=== PATIENT | female | born 1990 | race Caucasian/White ===

== ENCOUNTER 2017-07-19 08:10 | Emergency (ER) | payer SELFPAY ==
--- NOTE | 2017-07-19 08:56 | RAD REPORT ---
EXAM DESCRIPTION: RAD - Forearm Right - 07/19/2017 8:41 am CLINICAL HISTORY: Blunt force trauma to the arm, persistent arm pain COMPARISON: None. FINDINGS: No fracture is identified. There is no dislocation or periosteal reaction noted. No foreign body or other soft tissue abnormality. IMPRESSION: Negative right forearm examination.
--- NOTE | 2017-07-19 08:56 | RAD REPORT ---
EXAM DESCRIPTION: RAD - Hand Right 3 View - 07/19/2017 8:41 am CLINICAL HISTORY: Hand pain, blunt force trauma to the hand COMPARISON: None. FINDINGS: No fracture confirmed on this study. On the oblique view, there is a faint lucent line in the fifth metacarpal head. This would be an unusual location for a fracture. This is not likely a meryl e finding. No joint abnormality. There is no dislocation or periosteal reaction noted. No foreign rey dy or other soft tissue abnormality. IMPRESSION: No fracture or other acute finding confirmed on this study. Repeat imaging in 7 days would be recommended if the patient has continued symptoms concerning for fr acture.
--- NOTE | 2017-07-19 08:57 | RAD REPORT ---
EXAM DESCRIPTION: RAD - Femur Right - 07/19/2017 8:41 am CLINICAL HISTORY: Right leg trauma COMPARISON: None. FINDINGS: No fracture, dislocation or periosteal reaction noted. No acute or suspicious bony finding . No air or foreign body in the soft tissues. IMPRESSION: Negative right femur examination.
--- NOTE | 2017-07-19 09:12 | EDPHYS ---
Physician Documentation [facility] Name: Heydi Robins Age: 26 yrs Sex: Female : 1990 Arrival Date: 07/19/2017 Time: 08:11 Bed 15 Private MD: ED Physician Paul Hansen HPI: 07/19 09:05 This 26 yrs old Female presents to ER via Ambulatory with complaints of Hand gs Injury. 09:05 The patient or guardian reports injury. The complaints affect the right hand diffusely. gs Context: The problem was sustained at a parking lot, resulted from using own fist to strike, a window. Onset: The symptoms/episode began/occurred acutely, this morning. Modifying factors: the symptoms are aggravated by movement. Associated signs and symptoms: Pertinent positives: r forearm pain, r thigh pain. Severity of symptoms: At their worst the symptoms were moderate, in the emergency department the symptoms are unchanged. The patient has not experienced similar symptoms in the past. 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 - Social history:: Smoking status: Patient uses tobacco products, smokes one pack cigarettes per day. ROS: 09:05 All other systems are negative. gs Exam: 09:05 Head/Face: Normocephalic, atraumatic. Eyes: Pupils equal round and reactive to light, gs extra-ocular motions intact. Lids and lashes normal. Conjunctiva and sclera are non-icteric and not injected. Cornea within normal limits. Periorbital areas with no swelling, redness, or edema. ENT: Nares patent. No nasal discharge, no septal abnormalities noted. Tympanic membranes are normal and external auditory canals are clear. Oropharynx with no redness, swelling, or masses, exudates, or evidence of obstruction, uvula midline. Mucous membranes moist. Neck: Trachea midline, no thyromegaly or masses palpated, and no cervical lymphadenopathy. Supple, full range of motion without nuchal rigidity, or vertebral point tenderness. No Meningismus. Chest/axilla: Normal chest wall appearance and motion. Nontender with no deformity. No lesions are appreciated. Cardiovascular: Regular rate and rhythm with a normal S1 and S2. No gallops, murmurs, or rubs. Normal PMI, no JVD. No pulse deficits. Respiratory: Lungs have equal breath sounds bilaterally, clear to auscultation and percussion. No rales, rhonchi or wheezes noted. No increased work of breathing, no retractions or nasal flaring. Abdomen/GI: Soft, non-tender, with normal bowel sounds. No distension or tympany. No guarding or rebound. No evidence of tenderness throughout. Back: No spinal tenderness. No costovertebral tenderness. Full range of motion. 09:05 Constitutional: The patient appears alert, awake. 09:05 Musculoskeletal/extremity: ROM: limited passive range of motion, in the right hand, limited active range of motion due to pain, limited passive range of motion due to pain, Circulation is intact in all extremities. Sensation intact. 09:05 Skin: injury, abrasion(s), small abrasion noted, of the dorsum of right hand, contusion(s), of the right quadriceps. 09:05 Neuro: Exam negative for acute changes, motor deficits, sensory deficits. Vital Signs: 08:20 BP 131 / 85; Pulse 115; Resp 18; Temp 97.8; Pulse Ox 100% on R/A; Weight 68.95 kg; ph Height 5 ft. 1 in. (154.94 cm); Pain 5/10; 09:10 BP 128 / 81; Pulse 98; Resp 17; Pulse Ox 100% on R/A; rb1 08:20 Body Mass Index 28.72 (68.95 kg, 154.94 cm) ph MDM: 08:21 Patient medically screened. gs 09:05 Differential diagnosis: closed fracture, contusion, abrasion. Data reviewed: vital gs signs, nurses notes, radiologic studies. Response to treatment: the patient's symptoms have markedly improved after treatment, and as a result, I will discharge patient. 07/19 08:43 Order name: Urine Dipstick--Ancillary (enter results) bd 07/19 08:43 Order name: Urine --Ancillary (enter results) bd 07/19 08:21 Order name: Femur Right XRAY 07/19 08:21 Order name: Hand Right 3 View XRAY 07/19 08:21 Order name: Forearm Right XRAY 07/19 08:56 Order name: RAD EDMS 07/19 08:57 Order name: RAD EDMS 07/19 08:57 Order name: RAD EDMS 07/19 09:40 Order name: Wrist Splint; Complete Time: 09:40 rb1 Administered Medications: No medications were administered Disposition: 07/19/17 09:11 Discharged to Home. Impression: Contusion of right hand, Contusion of right thigh. - Condition is Stable. - Discharge Instructions: Contusion, Hand Contusion. - Medication Reconciliation Form, Thank You Letter, Antibiotic Education, Prescription Opioid Use form. - Follow up: Private Physician; When: 2 - 3 days; Reason: Re-evaluation by your physician. Signatures: Dispatcher [employer] Alejandra Underwood RN RN ph Barber, Rebecca, RN RN rb1 Starr, Gregory, MD MD
--- NOTE | 2017-07-19 09:12 | ER ---
Nurse's Notes [facility] Name: Heydi Robins Age: 26 yrs Sex: Female : 1990 Arrival Date: 07/19/2017 Time: 08:11 Bed 15 Private MD: Diagnosis: Contusion of right hand;Contusion of right thigh Presentation: 07/19 08:19 Presenting complaint: Patient states: " I punched a car window last night and I think I ph may have broke something." Redness and swelling noted to R hand. Transition of care: patient was not received from another setting of care. Onset of symptoms was July 19, 2017. Care prior to arrival: None. 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 - Social history:: Smoking status: Patient uses tobacco products, smokes one pack cigarettes per day. Screenin:15 Nutritional screening: No deficits noted. Tuberculosis screening: No symptoms or risk rb1 factors identified. Fall Risk None identified. 08:15 Abuse screen: Denies threats or abuse. rb1 Assessment: 08:15 General: Appears uncomfortable, Behavior is calm, cooperative. General: Appears rb1 unkempt. Neuro: Level of Consciousness is awake, alert, obeys commands, Oriented to person, place, time, situation. Cardiovascular: Capillary refill < 3 seconds is brisk in bilateral fingers. Respiratory: Airway is patent Respiratory effort is even, unlabored, Respiratory pattern is regular, symmetrical. Derm: Skin is pink, warm \\T\\ dry. Injury Description: Pt. stated, "I punched a car window.". 08:15 Pain: Complains of pain in right hand Pain currently is 5 out of 10 on a pain scale. rb1 GI: No signs and/or symptoms were reported involving the gastrointestinal system. : No signs and/or symptoms were reported regarding the genitourinary system. Derm: Bruising that is dark purple, on right hand and right thigh Pt. denies that the injuries were caused by someone else. Pt. stated, "I punched the car window with my hand and broke my phone, but I don't know how I got the bruise on my leg.". Musculoskeletal: Range of motion: limited in right hand. 08:28 Reassessment: pt. went to x-ray. rb1 09:10 Reassessment: Patient appears in no apparent distress at this time. Patient and/or rb1 family updated on plan of care and expected duration. Pain level reassessed. Patient is alert, oriented x 3, equal unlabored respirations, skin warm/dry/pink. Vital Signs: 08:20 BP 131 / 85; Pulse 115; Resp 18; Temp 97.8; Pulse Ox 100% on R/A; Weight 68.95 kg; ph Height 5 ft. 1 in. (154.94 cm); Pain 5/10; 09:10 BP 128 / 81; Pulse 98; Resp 17; Pulse Ox 100% on R/A; rb1 08:20 Body Mass Index 28.72 (68.95 kg, 154.94 cm) ph ED Course: 08:11 Patient arrived in ED. as 08:14 Paul Hansen MD is Attending Physician. gs 08:15 Patient has correct armband on for positive identification. Bed in low position. Call rb1 light in reach. Side rails up X 1. Pulse ox on. NIBP on. 08:20 Triage completed. ph 08:21 Arm band placed on Patient placed in an exam room. ph 08:28 Stephanie De Leon, RN is Primary Nurse. rb1 08:41 Patient moved to radiology via wheelchair. kp1 08:41 X-ray completed. Patient tolerated procedure well. kp1 08:46 Urine --Ancillary (enter results) Sent. rb1 08:46 Urine Dipstick--Ancillary (enter results) Sent. rb1 09:38 No provider procedures requiring assistance completed. Patient did not have IV access rb1 during this emergency room visit. 09:39 Velcro wrist splint applied to right wrist. bm6 Administered Medications: No medications were administered Outcome: 09:11 Discharge ordered by . gs 09:38 Discharged to home ambulatory. rb1 09:38 Condition: stable 09:38 Discharge instructions given to patient, Instructed on discharge instructions, follow up and referral plans. Demonstrated understanding of instructions, follow-up care, Prescriptions given X none 09:40 Patient left the ED. rb1 Signatures: Brandy Verdugo Patricia RN RN Stephanie De Leon RN RN rb1 Lauri Arana bm6 Corrie Mcknight kp1 Paul Hansen MD MD
[2017-07-19 11:08] LABS: Urine Blood 2+ (NEG); Urine Glucose NEGATIVE (NEG); Urine Protein 1+ (NEG); Urine Specific Gravity >1.030 (1.005-1.030); Urine pH 5.5 (5.0-7.0)
== END 2017-07-19 09:40 | disposition home or self-care (01) ==
LOC: ER 08:10
DX: S60.221A Contusion of right hand, initial encounter (principal); S70.11XA Contusion of right thigh, initial encounter; W22.8XXA Striking against or struck by other objects, initial encounter; Y93.89 Activity, other specified; Y92.481 Parking lot as the place of occurrence of the external cause; Z88.2 Allergy status to sulfonamides; E03.9 Hypothyroidism, unspecified; G40.909 Epilepsy, unspecified, not intractable, without status epilepticus; F17.210 Nicotine dependence, cigarettes, uncomplicated
CPT/HCPCS: 81003; 81025; 99284

== ENCOUNTER 2018-01-13 19:41 | Emergency (ER) | payer SELFPAY ==
[2018-01-13] MEDS ORDERED: KETOROLAC 30 MG/ML INJ ONE (20:45)
[2018-01-13 20:46] LABS: Urine Blood TRACE (NEG); Urine Glucose NEGATIVE (NEG); Urine Protein NEGATIVE (NEG); Urine Specific Gravity 1.025 (1.005-1.030); Urine pH 5.5 (5.0-7.0)
--- NOTE | 2018-01-13 20:50 | ER ---
Nurse's Notes [facility] Name: Heydi Robins Age: 27 yrs Sex: Female : 1990 Arrival Date: 01/13/2018 Time: 19:42 Bed 25 Private MD: Ellie Evans C Diagnosis: Low back pain Presentation: 01/13 20:01 Presenting complaint: Patient states: she started having low back pain yesterday but bb pain has gotten much worse today, pt denies radiation of pain or dysuria. Transition of care: patient was not received from another setting of care. Onset of symptoms was January 13, 2018. Risk Assessment: Do you want to hurt yourself or someone else? Patient reports no desire to harm self or others. Initial Sepsis Screen: Does the patient meet any 2 criteria? No. Patient's initial sepsis screen is negative. Does the patient have a suspected source of infection? No. Patient's initial sepsis screen is negative. Care prior to arrival: None. 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 - Social history:: Smoking status: Patient uses tobacco products, smokes one-half pack cigarettes per day, Patient/guardian denies using alcohol, street drugs. - Ebola Screening: : No symptoms or risks identified at this time. Screenin:14 Abuse screen: Denies threats or abuse. Nutritional screening: No deficits noted. tl3 Tuberculosis screening: No symptoms or risk factors identified. Fall Risk None identified. Assessment: 20:14 General: Appears uncomfortable, well groomed, well developed, well nourished, Behavior tl3 is calm, cooperative, appropriate for age. Pain: Complains of pain in back Pain currently is 9 out of 10 on a pain scale. Neuro: Level of Consciousness is awake, alert, obeys commands. Cardiovascular: Patient's skin is warm and dry. Respiratory: Airway is patent Respiratory effort is even, unlabored, Respiratory pattern is regular, symmetrical. GI: No signs and/or symptoms were reported involving the gastrointestinal system. : No signs and/or symptoms were reported regarding the genitourinary system. EENT: No signs and/or symptoms were reported regarding the EENT system. Derm: No signs and/or symptoms reported regarding the dermatologic system. 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 21:06 Reassessment: Patient appears in no apparent distress at this time. No changes from tl3 previously documented assessment. Patient and/or family updated on plan of care and expected duration. Pain level reassessed. Patient is alert, oriented x 3, equal unlabored respirations, skin warm/dry/pink. Vital Signs: 20:12 BP 110 / 72; Pulse 85; Resp 16 S; Temp 98.9(O); Pulse Ox 99% on R/A; Weight 63.5 kg bb (R); Height 5 ft. 5 in. (165.10 cm) (R); Pain 7/10; 21:06 BP 104 / 75; Pulse 82; Resp 18; Pulse Ox 100% on R/A; tl3 20:12 Body Mass Index 23.30 (63.50 kg, 165.10 cm) bb ED Course: 19:42 Patient arrived in ED. am2 19:42 Ellie Evans FNP is Private Physician. am2 19:51 Kailyn Quach FNP-C is [facility]. snw 19:51 Khang Brooks MD is Attending Physician. snw 19:59 Yue Cuevas RN is Primary Nurse. tl3 20:07 Triage completed. bb 20:12 Arm band placed on Patient placed in an exam room, on a stretcher, on pulse oximetry. bb 20:14 Patient has correct armband on for positive identification. Bed in low position. Call tl3 light in reach. Side rails up X 1. Pulse ox on. NIBP on. 20:14 No provider procedures requiring assistance completed. tl3 21:06 Patient did not have IV access during this emergency room visit. tl3 Administered Medications: 20:45 Drug: TORadol 60 mg Route: IM; Site: left vastus lateralis; tl3 21:07 Follow up: Response: No adverse reaction; Pain is decreased tl3 Outcome: 20:50 Discharge ordered by MD. duarte 21:06 Discharged to home ambulatory. tl3 21:06 Condition: stable 21:06 Discharge instructions given to patient, Instructed on discharge instructions, follow up and referral plans. medication usage, Demonstrated understanding of instructions, follow-up care, medications, Prescriptions given X 2. 21:09 Patient left the ED. tl3 Signatures: Kailyn Quach, EVP MANAGING DIRECTOR-C EVP MANAGING DIRECTOR-Csnw Norma Caballero, RN RN bb Susy Renner Tammy, RN RN tl3
--- NOTE | 2018-01-13 20:50 | EDPHYS ---
Physician Documentation [facility] Name: Heydi Robins Age: 27 yrs Sex: Female : 1990 Arrival Date: 01/13/2018 Time: 19:42 Bed 25 Private MD: Ellie Evans C ED Physician Khang Brooks HPI: 01/13 20:35 This 27 yrs old Female presents to ER via Ambulatory with complaints of Low snw Back Pain. 20:35 The patient presents with pain that is acute. The symptoms are located in the low back. snw Location: lumbar area and right low back. The problem was sustained from unknown cause. Onset: The symptoms/episode began/occurred suddenly, yesterday. Modifying factors: The patient symptoms are alleviated by nothing, the patient symptoms are aggravated by movement. Severity of symptoms: At their worst the symptoms were moderate, severe. The patient has not experienced similar symptoms in the past. The patient has not recently seen a physician. pt states she slipped the other day but caught herself and did not fall. Pt takes phenteramine, keppra, and topamax. Allergic to sulfa. 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 - Social history:: Smoking status: Patient uses tobacco products, smokes one-half pack cigarettes per day, Patient/guardian denies using alcohol, street drugs. - Ebola Screening: : No symptoms or risks identified at this time. ROS: 20:34 Constitutional: Negative for fever, chills, and weight loss, Eyes: Negative for injury, snw pain, redness, and discharge, ENT: Negative for injury, pain, and discharge, Neck: Negative for injury, pain, and swelling, Cardiovascular: Negative for chest pain, palpitations, and edema, Respiratory: Negative for shortness of breath, cough, wheezing, and pleuritic chest pain, Abdomen/GI: Negative for abdominal pain, nausea, vomiting, diarrhea, and constipation, : Negative for injury, bleeding, discharge, and swelling, MS/Extremity: Negative for injury and deformity, Skin: Negative for injury, rash, and discoloration, Neuro: Negative for headache, weakness, numbness, tingling, and seizure. 20:34 Back: Positive for pain at rest, pain with movement, of the lumbar area and right low back. Exam: 20:34 Constitutional: This is a well developed, well nourished patient who is awake, alert, snw and in no acute distress. Head/Face: Normocephalic, atraumatic. Eyes: Pupils equal round and reactive to light, extra-ocular motions intact. Lids and lashes normal. Conjunctiva and sclera are non-icteric and not injected. Cornea within normal limits. Periorbital areas with no swelling, redness, or edema. ENT: Nares patent. No nasal discharge, no septal abnormalities noted. Tympanic membranes are normal and external auditory canals are clear. Oropharynx with no redness, swelling, or masses, exudates, or evidence of obstruction, uvula midline. Mucous membranes moist. Neck: Trachea midline, no thyromegaly or masses palpated, and no cervical lymphadenopathy. Supple, full range of motion without nuchal rigidity, or vertebral point tenderness. No Meningismus. Chest/axilla: Normal chest wall appearance and motion. Nontender with no deformity. No lesions are appreciated. Cardiovascular: Regular rate and rhythm with a normal S1 and S2. No gallops, murmurs, or rubs. Normal PMI, no JVD. No pulse deficits. Respiratory: Lungs have equal breath sounds bilaterally, clear to auscultation and percussion. No rales, rhonchi or wheezes noted. No increased work of breathing, no retractions or nasal flaring. Abdomen/GI: Soft, non-tender, with normal bowel sounds. No distension or tympany. No guarding or rebound. No evidence of tenderness throughout. Skin: Warm, dry with normal turgor. Normal color with no rashes, no lesions, and no evidence of cellulitis. MS/ Extremity: Pulses equal, no cyanosis. Neurovascular intact. Full, normal range of motion. Neuro: Awake and alert, GCS 15, oriented to person, place, time, and situation. Cranial nerves II-XII grossly intact. Motor strength 5/5 in all extremities. Sensory grossly intact. Cerebellar exam normal. Normal gait. Psych: Awake, alert, with orientation to person, place and time. Behavior, mood, and affect are within normal limits. 20:34 Back: pain, that is mild, of the lumbar area and right low back, ROM is painful, normal spinal alignment noted, CVA tenderness, is absent, muscle spasm, is not present. Vital Signs: 20:12 BP 110 / 72; Pulse 85; Resp 16 S; Temp 98.9(O); Pulse Ox 99% on R/A; Weight 63.5 kg bb (R); Height 5 ft. 5 in. (165.10 cm) (R); Pain 7/10; 21:06 BP 104 / 75; Pulse 82; Resp 18; Pulse Ox 100% on R/A; tl3 20:12 Body Mass Index 23.30 (63.50 kg, 165.10 cm) bb MDM: 20:24 Patient medically screened. snw 20:51 Data reviewed: vital signs, nurses notes. Data interpreted: Pulse oximetry: on room air snw is 99 %. Interpretation: normal. Counseling: I had a detailed discussion with the patient and/or guardian regarding: the historical points, exam findings, and any diagnostic results supporting the discharge/admit diagnosis, lab results, the need for outpatient follow up, to return to the emergency department if symptoms worsen or persist or if there are any questions or concerns that arise at home. Special discussion: Based on the history and exam findings, there is no indication for further emergent testing or inpatient evaluation. I discussed with the patient/guardian the need to see the primary care provider for further evaluation of the symptoms. 01/13 19:51 Order name: Urine Test (obtain specimen); Complete Time: 20:14 snw 01/13 20:15 Order name: Urine Dipstick--Ancillary (enter results); Complete Time: 20:49 ms 01/13 20:15 Order name: Urine --Ancillary (enter results); Complete Time: 20:49 ms 01/13 19:51 Order name: Urine Dipstick-Ancillary (obtain specimen); Complete Time: 20:14 snw Administered Medications: 20:45 Drug: TORadol 60 mg Route: IM; Site: left vastus lateralis; tl3 21:07 Follow up: Response: No adverse reaction; Pain is decreased tl3 Disposition: 01/14 07:08 Co-signature as Attending Physician, Khang Brooks MD I agree with the assessment and fredi plan of care. Disposition: 01/13/18 20:50 Discharged to Home. Impression: Low back pain. - Condition is Stable. - Discharge Instructions: Back Pain, Adult, Musculoskeletal Pain, Back Injury Prevention, [id number], Back Exercises, [id number], Cryotherapy, Heat Therapy. - Prescriptions for Diclofenac Sodium 75 mg Oral Tablet Sustained Release - take 1 tablet by ORAL route 2 times per day; 30 tablet. orphenadrine citrate 100 mg Oral Tablet Sustained Release - take 1 tablet by ORAL route 2 times per day As needed; 20 tablet. - Work release form, Medication Reconciliation Form, Thank You Letter, Antibiotic Education, Prescription Opioid Use form. - Follow up: Private Physician; When: 2 - 3 days; Reason: Recheck today's complaints, Continuance of care, Re-evaluation by your physician. Follow up: Emergency Department; When: As needed; Reason: Worsening of condition. Signatures: Dispatcher [employer] EDOH Khang Brooks MD MD cha Therrien, Shelly, FINANCIAL ADMINISTRATION OFFICER-C FINANCIAL ADMINISTRATION OFFICER-Csnw Norma Caballero, RN RN Yue Leal RN RN tl3 Corrections: (The following items were deleted from the chart) 01/13 21:09 20:50 01/13/2018 20:50 Discharged to Home. Impression: Low back pain. Condition is tl3 Stable. Forms are Medication Reconciliation Form, Thank You Letter, Antibiotic Education, Prescription Opioid Use. Follow up: Private Physician; When: 2 - 3 days; Reason: Recheck today's complaints, Continuance of care, Re-evaluation by your physician. Follow up: Emergency Department; When: As needed; Reason: Worsening of condition. snw
== END 2018-01-13 21:09 | disposition home or self-care (01) ==
LOC: ER 19:41
DX: M54.5 Low back pain (principal); Z88.2 Allergy status to sulfonamides
CPT/HCPCS: 81003; 81025; 96372; 99283

== ENCOUNTER 2018-03-25 19:24 | Emergency (ER) | payer SELFPAY ==
--- NOTE | 2018-03-25 20:18 | ER ---
Nurse's Notes [facility] Name: Heydi Robins Age: 27 yrs Sex: Female : 1990 Arrival Date: 03/25/2018 Time: 19:25 Bed Waiting Private MD: Ellie Evans C Diagnosis: Presentation: 03/25 19:54 Presenting complaint: Patient states: N/V, fever, body aches since this AM. Transition aj of care: patient was not received from another setting of care. Onset of symptoms was March 25, 2018. Risk Assessment: Do you want to hurt yourself or someone else? Patient reports no desire to harm self or others. Initial Sepsis Screen: Does the patient meet any 2 criteria? No. Patient's initial sepsis screen is negative. Does the patient have a suspected source of infection? No. Patient's initial sepsis screen is negative. Care prior to arrival: None. 19:54 Method Of Arrival: Ambulatory aj 19:54 Acuity: JOYCELYN 4 aj Triage Assessment: 19:56 General: Appears in no apparent distress. uncomfortable, ill, Behavior is calm, aj cooperative, appropriate for age. Pain: Complains of pain in body aches. Neuro: Level of Consciousness is awake, alert, obeys commands, Oriented to person, place, time, situation, Appropriate for age. Respiratory: Airway is patent Respiratory effort is even, unlabored, Respiratory pattern is regular, symmetrical. GI: Reports nausea, vomiting. Derm: Skin is intact, is healthy with good turgor, Skin is pink, warm \T\ dry. normal. Historical: - Allergies: 19:56 Sulfa (Sulfonamide Antibiotics); aj - Home Meds: 19:56 Keppra Oral [Active]; levetiracetam oral oral [Active]; aj - PMHx: 19:56 Hypothyroidism; Migraines; Seizures; aj - PSHx: 19:56 Tubal ligation; Appendectomy; aj - Immunization history:: Adult Immunizations up to date. - Social history:: Smoking status: Patient/guardian denies using tobacco. - Ebola Screening: : Patient negative for fever greater than or equal to 101.5 degrees Fahrenheit, and additional compatible Ebola Virus Disease symptoms Patient denies exposure to infectious person Patient denies travel to an Ebola-affected area in the 21 days before illness onset No symptoms or risks identified at this time. Vital Signs: 19:56 BP 110 / 66; Pulse 104; Resp 19; Temp 99.6(O); Pulse Ox 98% on R/A; Weight 63.5 kg; aj Height 5 ft. 1 in. (154.94 cm); 19:56 Body Mass Index 26.45 (63.50 kg, 154.94 cm) aj ED Course: 19:25 Patient arrived in ED. am2 19:28 Ellie Evans FNP is Private Physician. am2 19:55 Triage completed. aj 19:56 Arm band placed on left wrist. Patient placed in waiting room, Patient notified of wait aj time. Labs ordered per protocol. 20:17 Paul Hansen MD is Attending Physician. aj Administered Medications: No medications were administered Outcome: 20:16 Eloped from waiting room, before seeing physician Time discovered patient gone: aj March 25, 2018 at 20:16 20:17 Patient left the ED. aj Signatures: Susy Crespo, RN RN Susy Berg am2
== END 2018-03-25 20:17 | disposition left against medical advice (07) ==
LOC: ER 19:24
DX: Z53.21 Procedure and treatment not carried out due to patient leaving prior to being seen by health care provider (principal)
CPT/HCPCS: 87070; 87081; 87804; 99282

== ENCOUNTER 2018-07-21 13:58 | Emergency (ER) | payer SELFPAY ==
[2018-07-21 15:20] LABS: Absolute Lymphocytes (CBC) 2.4 K/uL (0.7-4.9); Absolute Monocytes 0.8 K/uL (0.1-1.3); Absolute Neutrophil 5.1 K/uL (1.8-8.0); Basophils % 0.3 % (0-1.3); Eosinophils % 0.9 % (0-4.4); Hematocrit 42.8 % (36.0-45.0); Lymphocytes % 28.3 % (15.3-44.8); MPV 8.2 fL (7.6-11.3); Monocytes % 9.2 % (3.3-12.3)
[2018-07-21 15:27] LABS: Protime INR 0.92
[2018-07-21 15:31] LABS: ALT/SGPT 17 U/L (12-78); AST/SGOT 9 U/L (15-37); Albumin 4.6 g/dL (3.4-5.0); Alkaline Phosphatase 52 U/L (45-117); BUN Blood Urea Nitrogen 10 mg/dL (7-18); Bicarbonate 30 mmol/L (21-32); Bilirubin Direct 0.2 mg/dL (0-0.2); Bilirubin Total 0.8 mg/dL (0.2-1.0); Glucose Level 88 mg/dL (74-106); Magnesium 2.1 mg/dL (1.8-2.4); NT PRO-BNP 33 pg/mL (<125); Potassium 3.5 mmol/L (3.5-5.1); Protein, Total 8.2 g/dL (6.4-8.2); Sodium Level 139 mmol/L (136-145); Troponin (Emerg Dept Use Only) < 0.02 ng/mL (0.0-0.045)
--- NOTE | 2018-07-21 15:41 | RAD REPORT ---
EXAM DESCRIPTION: Jori Single View07/21/2018 3:12 pm CLINICAL HISTORY: Chest pain COMPARISON: 2016 FINDINGS: The lungs appear clear of acute infiltrate. The heart is normal size IMPRESSION: No acute abnormalities displayed
[2018-07-21] MEDS ORDERED: NA CHLORIDE 0.9% 1,000 ML ONE (15:53)
--- NOTE | 2018-07-21 16:17 | RAD REPORT ---
EXAM DESCRIPTION: CT - Head Brain Wo Cont - 07/21/2018 4:02 pm CLINICAL HISTORY: Syncope COMPARISON: None. TECHNIQUE: Computed axial tomography of the head was obtained. IV contrast was not requested. All CT scans are performed using dose optimization technique as appropriate and may include automated exposure control or mA/KV adjustment according to patient size. FINDINGS: An intracranial bleed is not seen . The ventricles are normal in caliber. No extra-axial fluid collection is noted. Fluid within the sinuses/ mastoids is not seen. Mild chronic sphenoid sinusitis IMPRESSION: No acute intracranial abnormality is seen. If patient's symptoms persist MRI of the bra in would be recommended.
[2018-07-21 18:10] LABS: Barbiturates NEGATIVE (NEGATIVE); Benzodiazepines NEGATIVE (NEGATIVE); Cocaine NEGATIVE (NEGATIVE); METHAMPHETAM NEGATIVE (NEGATIVE); Methadone NEGATIVE (NEGATIVE); Opiates NEGATIVE (NEGATIVE); Phencyclidine NEGATIVE (NEGATIVE); THC Cannibis NEGATIVE (NEGATIVE)
--- NOTE | 2018-07-21 18:24 | ER ---
Nurse's Notes [facility] Name: Heydi Robins Age: 27 yrs Sex: Female : 1990 Arrival Date: 07/21/2018 Time: 14:01 Bed 15 Private MD: Diagnosis: Syncope and collapse Presentation: 07/21 14:21 Presenting complaint: Patient states: "I don't feel well, earlier my vision got ss blurred, and I felt uncomfortable in my L shoulder, then I stood up and next thing I know I woke up on the ground. I've had seizures before, but this feels different.". Transition of care: patient was not received from another setting of care. Onset of symptoms was July 21, 2018. Risk Assessment: Do you want to hurt yourself or someone else? Patient reports no desire to harm self or others. Initial Sepsis Screen: Does the patient meet any 2 criteria? HR > 90 bpm. Does the patient have a suspected source of infection? No. Patient's initial sepsis screen is negative. Care prior to arrival: None. 14:21 Method Of Arrival: Wheelchair ss 14:21 Acuity: JOYCELYN 2 ss Triage Assessment: 14:30 General: Appears in no apparent distress. comfortable, Behavior is cooperative, bp appropriate for age, anxious. Pain: Denies pain. Historical: - Allergies: 14:24 Sulfa (Sulfonamide Antibiotics); ss - Home Meds: 14:24 Keppra Oral [Active]; ss - PMHx: 14:24 Hypothyroidism; Migraines; Seizures; ss - PSHx: 14:24 Tubal ligation; Appendectomy; ss - Immunization history:: Adult Immunizations up to date. - Social history:: Smoking status: Patient uses tobacco products, "vape. - Ebola Screening: : Patient denies exposure to infectious person Patient denies travel to an Ebola-affected area in the 21 days before illness onset. Screenin:25 Abuse screen: Denies threats or abuse. Denies injuries from another. Nutritional bp screening: No deficits noted. Tuberculosis screening: No symptoms or risk factors identified. Fall Risk None identified. Assessment: 14:26 Reassessment: Pt is tearful and seems anxious during triage. ss 14:30 General: Appears in no apparent distress. comfortable, Behavior is cooperative, bp appropriate for age, anxious. Pain: Denies pain. Neuro: Level of Consciousness is awake, alert, obeys commands, Oriented to person, place, time, situation, Appropriate for age. Cardiovascular: No deficits noted. Respiratory: Airway is patent Respiratory effort is even, unlabored, Respiratory pattern is regular, symmetrical. GI: No signs and/or symptoms were reported involving the gastrointestinal system. : No signs and/or symptoms were reported regarding the genitourinary system. EENT: No deficits noted. Derm: No deficits noted. Musculoskeletal: Circulation, motion, and sensation intact. Range of motion: intact in all extremities. 15:47 Reassessment: PT ANXIOUS AND TEARFUL, LOUD AND ANIMATED ON PHONE WITH FAMILY. IVF bp INFUSING. 17:02 Reassessment: PT REMAINS TEARFUL AND ANXIOUS. VS STABLE ON B/S MONITOR. bp 19:00 Reassessment: Received patient from JESSA Alexander. Patient discharge pending urine micro aj1 results. 20:00 Reassessment: Patient appears in no apparent distress at this time. No changes from aj1 previously documented assessment. Patient and/or family updated on plan of care and expected duration. Pain level reassessed. Patient is alert, oriented x 3, equal unlabored respirations, skin warm/dry/pink. Vital Signs: 14:24 BP 125 / 97; Pulse 125; Resp 18; Temp 98.6(O); Pulse Ox 100% on R/A; Weight 66.68 kg; ss Height 5 ft. 10 in. (177.80 cm); Pain 0/10; 15:27 BP 169 / 96 LA Sitting (auto/reg); Pulse 123; em1 15:31 BP 126 / 91 LA Standing (auto/reg); Pulse 131; em1 17:01 BP 125 / 86; Pulse 113; Resp 19; Pulse Ox 99% ; bp 19:10 BP 119 / 89; Pulse 99; Resp 18; Pulse Ox 100% ; aj1 20:00 BP 124 / 89; Pulse 98; Resp 18; Pulse Ox 100% on R/A; aj1 14:24 Body Mass Index 21.09 (66.68 kg, 177.80 cm) ED Course: 14:01 Patient arrived in ED. as 14:23 Triage completed. 14:24 Arm band placed on right wrist. 14:29 Benjamin Carter, RN is Primary Nurse. bp 14:31 Willian Hartley NP is PHCP. pm1 14:31 Hero Cardoza MD is Attending Physician. pm1 14:35 EKG done, by nuclear technician. reviewed by Willian Hartley NP. sm3 15:05 Initial lab(s) drawn, by me, sent to lab. Inserted saline lock: 20 gauge in right em1 antecubital area, using aseptic technique. Blood collected. 15:11 X-ray completed. Portable x-ray completed in exam room. Patient tolerated procedure 1 well. 15:12 XRAY Chest (1 view) In Process Unspecified. EDMS 15:25 Patient has correct armband on for positive identification. Bed in low position. Call bp light in reach. Side rails up X2. Adult w/ patient. 15:[address] via wheelchair. vm2 16:01 CT completed. Patient tolerated procedure well. Patient moved back from CT. 2 16:02 CT Head Brain wo Cont In Process Unspecified. EDMS 20:29 No provider procedures requiring assistance completed. IV discontinued, intact, aj1 bleeding controlled, No redness/swelling at site. Pressure dressing applied. Administered Medications: 15:45 Drug: NS 0.9% 1000 ml Route: IV; Rate: 1000 ml; Site: right antecubital; bp Outcome: 18:24 Discharge ordered by . pm1 20:29 Discharged to home ambulatory, with family. aj1 20:29 Condition: good 20:29 Discharge instructions given to patient, Instructed on discharge instructions, follow up and referral plans. Demonstrated understanding of instructions, follow-up care. 20:31 Patient left the ED. aj1 Signatures: Dispatcher [employer] EDMS Jayshree Guajardo, RN RN aj1 Ale Robles 1 Brandy Verdugo Eric 1 Ceci Vincent RN RN ss Marinas, Patrick, NP PRESCHOOL TEACHER pm1 Maggie Bowens 2 Benjamin Carter RN RN Yessi Dhillon 3
--- NOTE | 2018-07-21 18:24 | EDPHYS ---
Physician Documentation [facility] Name: Heydi Robins Age: 27 yrs Sex: Female : 1990 Arrival Date: 07/21/2018 Time: 14:01 Bed 15 Private MD: ED Physician Hero Cardoza HPI: 07/21 15:00 This 27 yrs old Female presents to ER via Wheelchair with complaints of pm1 Dizziness, Syncope. 15:00 The patient presents with dizziness. Onset: The symptoms/episode began/occurred just pm1 prior to arrival. Context: occurred at home, occurred while the patient was changing position from sitting in couch to standing. just prior to the episode the patient experienced no apparent symptoms. Modifying factors: The symptoms are alleviated by lying down, the symptoms are aggravated by changing position. Associated signs and symptoms: Pertinent positives: bilateral vision with sensation like floaters, Pertinent negatives: abdominal pain, chest pain, nausea, numbness, shortness of breath, tingling, vomiting. Severity of symptoms: in the emergency department the symptoms have improved Pain is currently a 0 / 10. Patient's baseline: Neuro: alert and fully oriented, Motor: no deficits, Ambulation: walks without assistance, Speech: normal, The patient has a previous history of seizures. The patient has not recently seen a physician. 15:00 Has UTI that she has been taking two days of macrodantin. pm1 Historical: - Allergies: 14:24 Sulfa (Sulfonamide Antibiotics); ss - Home Meds: 14:24 Keppra Oral [Active]; ss - PMHx: 14:24 Hypothyroidism; Migraines; Seizures; ss - PSHx: 14:24 Tubal ligation; Appendectomy; ss - Immunization history:: Adult Immunizations up to date. - Social history:: Smoking status: Patient uses tobacco products, "vape. - Ebola Screening: : Patient denies exposure to infectious person Patient denies travel to an Ebola-affected area in the 21 days before illness onset. ROS: 15:00 Constitutional: Negative for fever, chills, and weight loss, ENT: Negative for injury, pm1 pain, and discharge, Neck: Negative for injury, pain, and swelling, Cardiovascular: Negative for chest pain, palpitations, and edema, Respiratory: Negative for shortness of breath, cough, wheezing, and pleuritic chest pain, Abdomen/GI: Negative for abdominal pain, nausea, vomiting, diarrhea, and constipation, Back: Negative for injury and pain, : Negative for injury, bleeding, discharge, and swelling, MS/Extremity: Negative for injury and deformity, Skin: Negative for injury, rash, and discoloration. 15:00 Eyes: Positive for floaters in bilateral eyes, Negative for pain, redness. 15:00 Neuro: Positive for dizziness, Negative for headache, numbness, tingling, weakness. Exam: 15:00 Constitutional: This is a well developed, well nourished patient who is awake, alert, pm1 and in no acute distress. Head/Face: Normocephalic, atraumatic. Eyes: Pupils equal round and reactive to light, extra-ocular motions intact. Lids and lashes normal. Conjunctiva and sclera are non-icteric and not injected. Cornea within normal limits. Periorbital areas with no swelling, redness, or edema. ENT: Nares patent. No nasal discharge, no septal abnormalities noted. Tympanic membranes are normal and external auditory canals are clear. Oropharynx with no redness, swelling, or masses, exudates, or evidence of obstruction, uvula midline. Mucous membranes moist. Neck: Trachea midline, no thyromegaly or masses palpated, and no cervical lymphadenopathy. Supple, full range of motion without nuchal rigidity, or vertebral point tenderness. No Meningismus. Chest/axilla: Normal chest wall appearance and motion. Nontender with no deformity. No lesions are appreciated. Cardiovascular: Regular rate and rhythm with a normal S1 and S2. No gallops, murmurs, or rubs. Normal PMI, no JVD. No pulse deficits. Respiratory: Lungs have equal breath sounds bilaterally, clear to auscultation and percussion. No rales, rhonchi or wheezes noted. No increased work of breathing, no retractions or nasal flaring. Abdomen/GI: Soft, non-tender, with normal bowel sounds. No distension or tympany. No guarding or rebound. No evidence of tenderness throughout. Back: No spinal tenderness. No costovertebral tenderness. Full range of motion. Skin: Warm, dry with normal turgor. Normal color with no rashes, no lesions, and no evidence of cellulitis. MS/ Extremity: Pulses equal, no cyanosis. Neurovascular intact. Full, normal range of motion. 15:00 Neuro: Orientation: is normal, Cranial nerves: CN II- XII are normal as tested, Cerebellar function: normal finger to nose testing, Motor: is normal, moves all fours, strength is 5/5 in all extremities, Sensation: is normal, no obvious gross deficits. Vital Signs: 14:24 BP 125 / 97; Pulse 125; Resp 18; Temp 98.6(O); Pulse Ox 100% on R/A; Weight 66.68 kg; ss Height 5 ft. 10 in. (177.80 cm); Pain 0/10; 15:27 BP 169 / 96 LA Sitting (auto/reg); Pulse 123; em1 15:31 BP 126 / 91 LA Standing (auto/reg); Pulse 131; em1 17:01 BP 125 / 86; Pulse 113; Resp 19; Pulse Ox 99% ; bp 19:10 BP 119 / 89; Pulse 99; Resp 18; Pulse Ox 100% ; aj1 20:00 BP 124 / 89; Pulse 98; Resp 18; Pulse Ox 100% on R/A; aj1 14:24 Body Mass Index 21.09 (66.68 kg, 177.80 cm) ss MDM: 14:46 Patient medically screened. pm1 18:04 Data reviewed: vital signs. Data interpreted: Pulse oximetry: on room air is 99 %. pm1 Interpretation: normal. 18:20 Differential diagnosis: cardiac arrhythmia, hypovolemia, syncope, vertigo, seizure. pm1 18:23 Counseling: I had a detailed discussion with the patient and/or guardian regarding: the pm1 historical points, exam findings, and any diagnostic results supporting the discharge/admit diagnosis, lab results, radiology results, the need for outpatient follow up, to return to the emergency department if symptoms worsen or persist or if there are any questions or concerns that arise at home. 07/21 14:49 Order name: Basic Metabolic Panel; Complete Time: 15:48 pm1 07/21 14:49 Order name: CBC with Diff; Complete Time: 15:29 pm1 07/21 14:49 Order name: LFT's; Complete Time: 15:48 pm1 07/21 14:49 Order name: Magnesium; Complete Time: 15:48 pm1 07/21 14:49 Order name: NT PRO-BNP; Complete Time: 15:48 pm07/21 14:49 Order name: PT-INR; Complete Time: 15:48 pm07/21 14:49 Order name: Troponin (emerg Dept Use Only); Complete Time: 15:48 pm07/21 14:49 Order name: XRAY Chest (1 view); Complete Time: 15:48 pm07/21 14:49 Order name: UDS; Complete Time: 18:11 pm07/21 15:49 Order name: CT Head Brain wo Cont; Complete Time: 16:20 pm07/21 17:54 Order name: Urine Dipstick--Ancillary (enter results); Complete Time: 08:37 kj07/21 17:55 Order name: Urine --Ancillary (enter results); Complete Time: 08:37 07/21 18:53 Order name: Urine Microscopic Only; Complete Time: 08:37 pm07/21 14:26 Order name: EKG; Complete Time: 14:27 07/21 14:26 Order name: EKG - Nurse/Tech; Complete Time: 15:05 07/21 14:49 Order name: Orthostatic Blood Pressure; Complete Time: 15:31 pm07/21 14:49 Order name: Cardiac monitoring; Complete Time: 15:22 pm07/21 14:49 Order name: IV Saline Lock; Complete Time: 15:04 pm07/21 14:49 Order name: Labs collected and sent; Complete Time: 15:04 pm07/21 14:49 Order name: O2 Per Protocol; Complete Time: 15:22 pm07/21 14:49 Order name: O2 Sat Monitoring; Complete Time: 15:22 pm Administered Medications: 15:45 Drug: NS 0.9% 1000 ml Route: IV; Rate: 1000 ml; Site: right antecubital; bp Disposition: 07/22 07:33 Co-signature as Attending Physician, Hero Cardoza MD I agree with the assessment and wa plan of care. Disposition: 07/21/18 18:24 Discharged to Home. Impression: Syncope and collapse. - Condition is Stable. - Discharge Instructions: Syncope. - Family Work Release, Medication Reconciliation Form, Thank You Letter, Antibiotic Education, Prescription Opioid Use form. - Follow up: Emergency Department; When: As needed; Reason: Worsening of condition. Follow up: Private Physician; When: 2 - 3 days; Reason: Recheck today's complaints, Continuance of care, Re-evaluation by your physician. - Problem is new. - Symptoms have improved. Signatures: Dispatcher [employer] EDJayshree Bates RN RN aj1 Ceci Vincent RN RN ss Willian Hartley, FILLER ROOM ATTENDANT FILLER ROOM ATTENDANT pm1 Hero Cardoza MD MD wa Peltier, Brian, RN RN bp Corrections: (The following items were deleted from the chart) 07/21 20:31 18:24 07/21/2018 18:24 Discharged to Home. Impression: Syncope and collapse. Condition aj1 is Stable. Forms are Medication Reconciliation Form, Thank You Letter, Antibiotic Education, Prescription Opioid Use. Follow up: Emergency Department; When: As needed; Reason: Worsening of condition. Follow up: Private Physician; When: 2 - 3 days; Reason: Recheck today's complaints, Continuance of care, Re-evaluation by your physician. Problem is new. Symptoms have improved. pm1
[2018-07-21 19:36] LABS: Urine Bacteria <20 /HPF (<20); Urine Culture Reflex Order NOT NEEDED; Urine RBC <5 /HPF (NONE SEEN)
--- NOTE | 2018-07-21 20:19 | EKG ---
Test Date: 2018-07-21 Test Time: 14:31:07 Bottom Presser: CHRISTIANO MEASUREMENT RESULTS: Intervals: Rate: 77 RI: 104 QRSD: 80 QT: 342 QTc: 387 [place]: P: -11 RI: 104 QRS: 244 T: 62 INTERPRETIVE STATEMENTS: Sinus rhythm with sinus arrhythmia with short RI Right superior axis deviation Abnormal ECG No previous ECG available for comparison Electronically Signed On 07-21-18 20:18:34 CDT by Hunter Paez
[2018-07-21 20:23] LABS: Urine Blood 3+ (NEG); Urine Glucose NEGATIVE (NEG); Urine Protein NEGATIVE (NEG); Urine pH 7.5 (5.0-7.0)
== END 2018-07-21 20:31 | disposition home or self-care (01) ==
LOC: ER 13:58
DX: R55 Syncope and collapse (principal); G40.909 Epilepsy, unspecified, not intractable, without status epilepticus; Z72.0 Tobacco use; Z88.2 Allergy status to sulfonamides
CPT/HCPCS: 36415; 70450; 71045; 80048; 80076; 80307; 81003; 81015; 81025; 83735; 83880; 84484; 85025; 85610; 93005; 99284; J7030

== ENCOUNTER 2018-09-24 15:00 | Emergency (ER) | payer OTHER, SELFPAY ==
--- NOTE | 2018-09-24 16:10 | ER ---
Nurse's Notes [facility] Name: Heydi Robins Age: 27 yrs Sex: Female : 1990 Arrival Date: 09/24/2018 Time: 15:03 Bed 30 Private MD: Diagnosis: Contusion of left knee;Pain in left knee Presentation: 09/24 15:07 Presenting complaint: Patient states: left knee injury/pain after falling onto her knee sv on Thursday. Transition of care: patient was not received from another setting of care. Onset of symptoms was September 20, 2018. Initial Sepsis Screen: Does the patient meet any 2 criteria? No. Patient's initial sepsis screen is negative. Does the patient have a suspected source of infection? No. Patient's initial sepsis screen is negative. Care prior to arrival: None. 15:07 Method Of Arrival: Wheelchair sv 15:07 Acuity: JOYCELYN 4 sv 16:12 Risk Assessment: Do you want to hurt yourself or someone else? Patient reports no mg2 desire to harm self or others. 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 - Social history:: Smoking status: Patient uses tobacco products, vape. - Ebola Screening: : No symptoms or risks identified at this time. Screenin:07 Abuse screen: Denies threats or abuse. Denies injuries from another. Nutritional mg2 screening: No deficits noted. Tuberculosis screening: No symptoms or risk factors identified. Fall Risk Fall in past 12 months (25 points). Assessment: 16:08 General: Appears in no apparent distress. comfortable, Behavior is calm, cooperative. mg2 Pain: Complains of pain in left leg and left knee Pain currently is 5 out of 10 on a pain scale. Quality of pain is described as aching, Pain began suddenly, 2-3 days ago. Is intermittent. Neuro: Level of Consciousness is awake, alert, obeys commands, Oriented to person, place, time, situation. Cardiovascular: Capillary refill < 3 seconds Patient's skin is warm and dry. Respiratory: Airway is patent Respiratory effort is even, unlabored, Respiratory pattern is regular, symmetrical. GI: No signs and/or symptoms were reported involving the gastrointestinal system. : No signs and/or symptoms were reported regarding the genitourinary system. EENT: No signs and/or symptoms were reported regarding the EENT system. Derm: Skin is intact, is healthy with good turgor, Skin is pink, warm \T\ dry. normal. Musculoskeletal: Circulation, motion, and sensation intact. Capillary refill < 3 seconds, Reports pain in left leg and left knee. Vital Signs: 15:08 BP 132 / 77; Pulse 107; Resp 18; Temp 97.6; Pulse Ox 99% ; Weight 62.14 kg; Height 5 sv ft. 0 in. (152.40 cm); Pain 6/10; 16:39 BP 133 / 70; Pulse 98; Resp 18; Temp 98.4; Pulse Ox 100% on R/A; Pain 3/10; mg2 15:08 Body Mass Index 26.76 (62.14 kg, 152.40 cm) sv ED Course: 15:03 Patient arrived in ED. as 15:08 Triage completed. sv 15:09 Arm band placed on. sv 15:20 Kailyn Quach FNP-C [facility]. snw 15:20 Mateus Cervantes MD is Attending Physician. snw 16:07 Knee Left 3 View XRAY In Process Unspecified. EDMS 16:07 René Friedman, JESSA is Primary Nurse. mg2 16:07 Patient has correct armband on for positive identification. Pulse ox on. NIBP on. Door mg2 closed. 16:07 No provider procedures requiring assistance completed. Patient did not have IV access mg2 during this emergency room visit. 16:27 Crutch training done. Knee immobilizer applied on left knee. mg2 Administered Medications: 16:25 Not Given (Patient Refused): TORadol 30 mg IM once mg2 Outcome: 16:10 Discharge ordered by . snw 16:38 Discharged to home via wheelchair, with crutches, with family. mg2 16:38 Condition: stable 16:38 Discharge instructions given to patient, Instructed on discharge instructions, follow up and referral plans. medication usage, Demonstrated understanding of instructions, follow-up care, medications, crutch walking, Prescriptions given X 2. 16:43 Patient left the ED. mg2 Signatures: Dispatcher [employer] Yue Benitez, Kailyn Chávez RN, PUMP SERVICER-C PUMP SERVICER-Meaganw Brandy Verdugo Michele, RN RN mg2
--- NOTE | 2018-09-24 16:10 | EDPHYS ---
Physician Documentation [facility] Name: Heydi Robins Age: 27 yrs Sex: Female : 1990 Arrival Date: 09/24/2018 Time: 15:03 Bed 30 Private MD: ED Physician Mateus Cervantes HPI: 09/24 16:08 This 27 yrs old Female presents to ER via Wheelchair with complaints of Knee snw Pain. 16:08 The patient presents with pain, that is acute. The complaints affect the left knee. snw Context: The problem was sustained at work, resulted from the patient falling, while walking, the patient can partially bear weight, must have assistance, Problem is a result from a previous injury: No. Onset: The symptoms/episode began/occurred suddenly, 5 day(s) ago, and became persistent. Modifying factors: The symptoms are alleviated by remaining still. Treatment prior to arrival includes: over the counter medications. Severity of symptoms: At their worst the symptoms were moderate, severe. It is unknown whether or not the patient has had similar symptoms in the past. The patient has not recently seen a physician. 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 - Social history:: Smoking status: Patient uses tobacco products, vape. - Ebola Screening: : No symptoms or risks identified at this time. ROS: 16:07 Constitutional: Negative for fever, chills, and weight loss, Eyes: Negative for injury, snw pain, redness, and discharge, ENT: Negative for injury, pain, and discharge, Neck: Negative for injury, pain, and swelling, Cardiovascular: Negative for chest pain, palpitations, and edema, Respiratory: Negative for shortness of breath, cough, wheezing, and pleuritic chest pain, Abdomen/GI: Negative for abdominal pain, nausea, vomiting, diarrhea, and constipation, Back: Negative for injury and pain, : Negative for injury, bleeding, discharge, and swelling, Skin: Negative for injury, rash, and discoloration, Neuro: Negative for headache, weakness, numbness, tingling, and seizure, Psych: Negative for depression, anxiety, suicide ideation, homicidal ideation, and hallucinations. 16:07 MS/extremity: Positive for injury or acute deformity, decreased range of motion, pain, of the left knee, burning through left knee, tightness at posterior knee. Exam: 16:06 Constitutional: This is a well developed, well nourished patient who is awake, alert, snw and in no acute distress. Head/Face: Normocephalic, atraumatic. Eyes: Pupils equal round and reactive to light, extra-ocular motions intact. Lids and lashes normal. Conjunctiva and sclera are non-icteric and not injected. Cornea within normal limits. Periorbital areas with no swelling, redness, or edema. ENT: Nares patent. No nasal discharge, no septal abnormalities noted. Tympanic membranes are normal and external auditory canals are clear. Oropharynx with no redness, swelling, or masses, exudates, or evidence of obstruction, uvula midline. Mucous membranes moist. Neck: Trachea midline, no thyromegaly or masses palpated, and no cervical lymphadenopathy. Supple, full range of motion without nuchal rigidity, or vertebral point tenderness. No Meningismus. Chest/axilla: Normal chest wall appearance and motion. Nontender with no deformity. No lesions are appreciated. Cardiovascular: Regular rate and rhythm with a normal S1 and S2. No gallops, murmurs, or rubs. Normal PMI, no JVD. No pulse deficits. Respiratory: Lungs have equal breath sounds bilaterally, clear to auscultation and percussion. No rales, rhonchi or wheezes noted. No increased work of breathing, no retractions or nasal flaring. Abdomen/GI: Soft, non-tender, with normal bowel sounds. No distension or tympany. No guarding or rebound. No evidence of tenderness throughout. Back: No spinal tenderness. No costovertebral tenderness. Full range of motion. Skin: Warm, dry with normal turgor. Normal color with no rashes, no lesions, and no evidence of cellulitis. Neuro: Awake and alert, GCS 15, oriented to person, place, time, and situation. Cranial nerves II-XII grossly intact. Motor strength 5/5 in all extremities. Sensory grossly intact. Cerebellar exam normal. Normal gait. Psych: Awake, alert, with orientation to person, place and time. Behavior, mood, and affect are within normal limits. 16:06 Musculoskeletal/extremity: Extremities: grossly normal except: noted in the left knee: contusion, pain. Vital Signs: 15:08 BP 132 / 77; Pulse 107; Resp 18; Temp 97.6; Pulse Ox 99% ; Weight 62.14 kg; Height 5 sv ft. 0 in. (152.40 cm); Pain 6/10; 16:39 BP 133 / 70; Pulse 98; Resp 18; Temp 98.4; Pulse Ox 100% on R/A; Pain 3/10; mg2 15:08 Body Mass Index 26.76 (62.14 kg, 152.40 cm) sv MDM: 15:24 Patient medically screened. snw 16:11 Data reviewed: vital signs, nurses notes. Data interpreted: Pulse oximetry: on room air snw is 99 %. Interpretation: normal. Counseling: I had a detailed discussion with the patient and/or guardian regarding: the historical points, exam findings, and any diagnostic results supporting the discharge/admit diagnosis, radiology results, the need for outpatient follow up, to return to the emergency department if symptoms worsen or persist or if there are any questions or concerns that arise at home. Special discussion: Based on the history and exam findings, there is no indication for further emergent testing or inpatient evaluation. I discussed with the patient/guardian the need to see the orthopedic surgeon for further evaluation of the symptoms. 09/24 15:21 Order name: Knee Left 3 View XRAY; Complete Time: 16:24 snw 09/24 16:12 Order name: Knee Immobilizer; Complete Time: 16:25 snw 09/24 16:12 Order name: Crutches; Complete Time: 16:25 snw 09/24 16:12 Order name: Crutch Training; Complete Time: 16:25 snw Administered Medications: 16:25 Not Given (Patient Refused): TORadol 30 mg IM once mg2 Disposition: 09/25 07:38 Co-signature as Attending Physician, Mateus Cervantes MD I agree with the assessment and kdr plan of care. Disposition: 09/24/18 16:10 Discharged to Home. Impression: Contusion of left knee, Pain in left knee. - Condition is Stable. - Discharge Instructions: Joint Pain, How to Use a Knee Brace, Musculoskeletal Pain, Knee Pain, Cryotherapy, [id number], Heat Therapy. - Prescriptions for Cyclobenzaprine 10 mg Oral Tablet - take 1 tablet by ORAL route every 8 hours As needed; 15 tablet. Diclofenac Sodium 75 mg Oral Tablet Sustained Release - take 1 tablet by ORAL route 2 times per day; 30 tablet. - Medication Reconciliation Form, Thank You Letter, Antibiotic Education, Prescription Opioid Use, Work release form form. - Follow up: Emergency Department; When: As needed; Reason: Worsening of condition. Follow up: Private Physician; When: 2 - 3 days; Reason: Recheck today's complaints, Continuance of care. Signatures: Dispatcher [employer] Yue Benitez, RN RN Mateus Cervantes MD MD [facility] Kailyn Quach, [employer] René Friedman RN RN mg2 Corrections: (The following items were deleted from the chart) 09/24 16:43 16:10 09/24/2018 16:10 Discharged to Home. Impression: Contusion of left knee; Pain in mg2 left knee. Condition is Stable. Forms are Medication Reconciliation Form, Thank You Letter, Antibiotic Education, Prescription Opioid Use. Follow up: Emergency Department; When: As needed; Reason: Worsening of condition. Follow up: Private Physician; When: 2 - 3 days; Reason: Recheck today's complaints, Continuance of care. snw
--- NOTE | 2018-09-24 16:21 | RAD REPORT ---
EXAM DESCRIPTION: RAD - Knee Left 3 View - 09/24/2018 4:04 pm CLINICAL HISTORY: Left knee pain status post injury FINDINGS: No fracture or dislocation is seen.
[2018-09-24] MEDS ORDERED: KETOROLAC 30 MG/ML INJ ONE (16:31)
== END 2018-09-24 16:43 | disposition home or self-care (01) ==
LOC: ER 15:00
DX: S80.02XA Contusion of left knee, initial encounter (principal); W19.XXXA Unspecified fall, initial encounter; Y93.01 Activity, walking, marching and hiking; Y92.89 Other specified places as the place of occurrence of the external cause; Y99.8 Other external cause status; Z72.0 Tobacco use; Z88.2 Allergy status to sulfonamides; G40.909 Epilepsy, unspecified, not intractable, without status epilepticus
CPT/HCPCS: 99284

== ENCOUNTER 2019-01-14 12:47 | Emergency (ER) | payer SELFPAY ==
[2019-01-14] MEDS ORDERED: NA CHLORIDE 0.9% 2,000 ML ONE (13:33)
[2019-01-14] MEDS ORDERED: LIDOCAINE 1% MPF 5 ML VIAL ONE (13:36)
[2019-01-14] MEDS ORDERED: DIAZEPAM 10 MG/2 ML INJ SYRINGE ONE (13:37)
[2019-01-14] MEDS ORDERED: HYDROCODONE/CHLORPHEN 5 ML/OSYR ONE (13:37)
--- NOTE | 2019-01-14 13:49 | RAD REPORT ---
EXAM DESCRIPTION: RAD - Chest Single View - 01/14/2019 1:40 pm CLINICAL HISTORY: Productive cough COMPARISON: June 2018 TECHNIQUE: AP portable chest image was obtained 1336 hours . FINDINGS: Lung volumes are low compared to the prior study. No peripheral mass consolidation. No pul monary edema pattern. Perihilar markings are not outside of normal range given the shallow inspiratio n. Trachea is midline. Heart and vasculature are normal. No measurable pleural effusion and no pneumo thorax. No acute bony abnormality seen. No acute aortic findings suspected. IMPRESSION: No acute cardiopulmonary process.
[2019-01-14 13:54] LABS: Absolute Lymphocytes (CBC) 2.7 K/uL (0.7-4.9); Basophils % 0.5 % (0-1.3); Lymphocytes % 29.9 % (15.3-44.8); MPV 8.3 fL (7.6-11.3); RBC Red Blood Cell Count 4.35 M/uL (3.86-4.86)
[2019-01-14 13:59] LABS: Protime INR 0.88
[2019-01-14 14:07] LABS: ALT/SGPT 20 U/L (12-78); AST/SGOT 14 U/L (15-37); Albumin 4.2 g/dL (3.4-5.0); Alkaline Phosphatase 60 U/L (45-117); BUN Blood Urea Nitrogen 18 mg/dL (7-18); Bicarbonate 28 mmol/L (21-32); Bilirubin Direct 0.1 mg/dL (0-0.2); Bilirubin Total 0.3 mg/dL (0.2-1.0); CKMB Creatine Kinase MB 1.3 ng/mL (0.3-3.6); Creatine Phosphokinase 102 U/L (26-192); Glucose Level 90 mg/dL (74-106); Lipase 618 U/L (73-393); Potassium 3.9 mmol/L (3.5-5.1); Protein, Total 8.2 g/dL (6.4-8.2); Sodium Level 142 mmol/L (136-145); Troponin (Emerg Dept Use Only) < 0.02 ng/mL (0.0-0.045)
[2019-01-14 15:01] LABS: Arterial Blood Carboxyhemoglob 0.8 % (0-1.5); Blood Gas Oxyhemoglobin 92.2 % (94-97); Blood O2 Saturation 93.8 % (92-98.5)
--- NOTE | 2019-01-14 15:09 | RAD REPORT ---
EXAM DESCRIPTION: CT - Chest For Pe Angio - 01/14/2019 2:51 pm CLINICAL HISTORY: cough COMPARISON: December 2018 chest x-ray TECHNIQUE: Dynamically enhanced axial 3 mm thick images of the chest were obtained during administra tion of <100> mL Isovue 370 IV contrast. Coronal reconstruction images were generated and reviewed. E xa utilizes a protocol for optimal evaluation of pulmonary arterial tree. Maximum intensity projections 3D imaging was utilized All CT scans are performed using dose optimization technique as appropriate and may include automated exposure control or mA/KV adjustment according to patient size. FINDINGS: A pulmonary embolus is not seen. A thoracic aortic aneurysm is not noted. A pleural effusion is not seen. A pericardial effusion is not seen. A lung consolidation is not present. IMPRESSION: Negative for a pulmonary embolism.
--- NOTE | 2019-01-14 15:17 | RAD REPORT ---
EXAM DESCRIPTION: CT - Abdomen Pelvis W Contrast - 01/14/2019 2:51 pm CLINICAL HISTORY: Abdominal pain COMPARISON: none. TECHNIQUE: Computed axial tomography of the abdomen pelvis was obtained. 100 cc Isovue-300 was admin istered intravenously. Oral contrast was not requested which limits evaluation of bowel. All CT scans are performed using dose optimization technique as appropriate and may include automated exposure control or mA/KV adjustment according to patient size. FINDINGS: The liver, spleen, pancreas, adrenal and kidneys appear unremarkable. No stranding within the peripancreatic fat There is no evidence of diverticulitis. No adnexal mass IMPRESSION: No acute abnormality is displayed.
--- NOTE | 2019-01-14 16:06 | EDPHYS ---
Physician Documentation [facility] Name: Heydi Robins Age: 28 yrs Sex: Female : 1990 Arrival Date: 01/14/2019 Time: 12:49 Bed 6 Private MD: Unknown, Unknown ED Physician Mateus Cervantes HPI: 01/14 13:30 This 28 yrs old Female presents to ER via Ambulatory with complaints of snw Cough, Fever, Breathing Difficulty. 13:30 The patient or guardian reports airway noise, cough, difficulty breathing, hoarse snw voice. Onset: The symptoms/episode began/occurred suddenly, 1 week(s) ago, and became worse today, and became persistent. Severity of symptoms: At their worst the symptoms were moderate, severe. Modifying factors: The symptoms are alleviated by nothing. Associated signs and symptoms: Pertinent positives: chest pain, with cough. The patient has not experienced similar symptoms in the past. It is unknown whether or not the patient has recently seen a physician. Pt vapes flavored solution. 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 - Social history:: Smoking status: Patient/guardian denies using tobacco, Patient uses vape for tobacco. - Ebola Screening: : Patient denies travel to an Ebola-affected area in the 21 days before illness onset. ROS: 13:29 Constitutional: Negative for fever, chills, and weight loss, Eyes: Negative for injury, snw pain, redness, and discharge, ENT: Negative for injury, pain, and discharge, Neck: Negative for injury, pain, and swelling, Cardiovascular: Negative for chest pain, palpitations, and edema. 13:29 Abdomen/GI: Negative for abdominal pain, nausea, vomiting, diarrhea, and constipation, Back: Negative for injury and pain, : Negative for injury, bleeding, discharge, and swelling, MS/Extremity: Negative for injury and deformity, Skin: Negative for injury, rash, and discoloration, Neuro: Negative for headache, weakness, numbness, tingling, and seizure. 13:29 Respiratory: Positive for cough, shortness of breath, wheezing. Exam: 13:29 Head/Face: Normocephalic, atraumatic. Eyes: Pupils equal round and reactive to light, snw extra-ocular motions intact. Lids and lashes normal. Conjunctiva and sclera are non-icteric and not injected. Cornea within normal limits. Periorbital areas with no swelling, redness, or edema. ENT: Nares patent. No nasal discharge, no septal abnormalities noted. Tympanic membranes are normal and external auditory canals are clear. Oropharynx with no redness, swelling, or masses, exudates, or evidence of obstruction, uvula midline. Mucous membranes moist. Neck: Trachea midline, no thyromegaly or masses palpated, and no cervical lymphadenopathy. Supple, full range of motion without nuchal rigidity, or vertebral point tenderness. No Meningismus. Chest/axilla: Normal chest wall appearance and motion. Nontender with no deformity. No lesions are appreciated. 13:29 Abdomen/GI: Soft, non-tender, with normal bowel sounds. No distension or tympany. No guarding or rebound. No evidence of tenderness throughout. Back: No spinal tenderness. No costovertebral tenderness. Full range of motion. Skin: Warm, dry with normal turgor. Normal color with no rashes, no lesions, and no evidence of cellulitis. MS/ Extremity: Pulses equal, no cyanosis. Neurovascular intact. Full, normal range of motion. Neuro: Awake and alert, GCS 15, oriented to person, place, time, and situation. Cranial nerves II-XII grossly intact. Motor strength 5/5 in all extremities. Sensory grossly intact. Cerebellar exam normal. Normal gait. Psych: Awake, alert, with orientation to person, place and time. Behavior, mood, and affect are within normal limits. 13:29 Constitutional: The patient appears alert, anxious, in obvious distress. 13:29 Cardiovascular: Rate: tachycardic, Rhythm: regular, Heart sounds: normal. 13:29 Respiratory: moderate respiratory distress is noted, Respirations: shallow respirations, tachypnea, Breath sounds: bronchial sounds, that are moderate, wheezing: that is moderate, that is severe, is heard diffusely. Vital Signs: 13:05 BP 133 / 91; Pulse 132; Resp 24; Temp 98.0; Pulse Ox 100% on R/A; Weight 61.23 kg (R); aj1 Height 5 ft. 0 in. (152.40 cm) (R); Pain 9/10; 13:49 BP 137 / 90; Pulse 94; Resp 24; Pulse Ox 100% on Nebulizer Mask; sv 14:30 BP 114 / 87; Pulse 105; Resp 22; Pulse Ox 100% ; sv 15:49 BP 109 / 78; Pulse 90; Resp 23; Temp 97.6(O); Pulse Ox 100% on R/A; jb1 16:15 BP 111 / 88; Pulse 90; Resp 20; Pulse Ox 99% ; sv 13:05 Body Mass Index 26.37 (61.23 kg, 152.40 cm) aj1 MDM: 13:29 Patient medically screened. snw 16:09 Data reviewed: vital signs, nurses notes. Data interpreted: Pulse oximetry: on room air snw is 100 %. Interpretation: normal. Counseling: I had a detailed discussion with the patient and/or guardian regarding: the historical points, exam findings, and any diagnostic results supporting the discharge/admit diagnosis, lab results, radiology results, the need for outpatient follow up, to return to the emergency department if symptoms worsen or persist or if there are any questions or concerns that arise at home. Special discussion: Based on the history and exam findings, there is no indication for further emergent testing or inpatient evaluation. I discussed with the patient/guardian the need to see the primary care provider for further evaluation of the symptoms. I discussed with the patient/guardian the need to see the bleach analyst for further evaluation of the symptoms. 01/14 13:26 Order name: Basic Metabolic Panel; Complete Time: 14:15 01/14 13:26 Order name: Blood Culture Adult (2) sv 01/14 13:26 Order name: CBC with Diff 01/14 13:26 Order name: Ckmb; Complete Time: 14:15 01/14 13:26 Order name: CPK; Complete Time: 14:15 01/14 13:26 Order name: Lactate; Complete Time: 14:15 01/14 13:26 Order name: LFT's; Complete Time: 14:15 01/14 13:26 Order name: Lipase; Complete Time: 14:15 01/14 13:26 Order name: Procalcitonin sv 01/14 13:26 Order name: Protime (+inr); Complete Time: 14:15 sv 01/14 13:26 Order name: Ptt, Activated; Complete Time: 14:15 sv 01/14 13:26 Order name: Troponin (emerg Dept Use Only); Complete Time: 14:15 sv 01/14 13:26 Order name: Urine Microscopic Only; Complete Time: 16:29 sv 01/14 13:26 Order name: ABG snw 01/14 13:26 Order name: D-Dimer; Complete Time: 14:15 snw 01/14 13:26 Order name: Basic Metabolic Panel snw 01/14 13:26 Order name: CBC with Diff w 01/14 13:26 Order name: Ckmb [facility] 01/14 13:26 Order name: CPK [facility] 01/14 13:26 Order name: Lactate [facility] 01/14 13:26 Order name: LFT's [facility] 01/14 13:26 Order name: Lipase [facility] 01/14 13:26 Order name: Procalcitonin [facility] 01/14 13:26 Order name: Protime (+inr) sn 01/14 13:26 Order name: Ptt, Activated w 01/14 13:26 Order name: Urine Microscopic Only w 01/14 13:28 Order name: Flu; Complete Time: 14:15 sv 01/14 14:09 Order name: CBC with Automated Diff EDMS 01/14 13:26 Order name: IV Saline Lock - Large Bore; Complete Time: 13:27 sv 01/14 13:26 Order name: Labs collected and sent; Complete Time: 13:27 sv 01/14 13:26 Order name: O2 Per Protocol; Complete Time: 13:27 sv 01/14 13:26 Order name: O2 Sat Monitoring; Complete Time: 13:28 sv 01/14 13:26 Order name: EKG - Nurse/Tech; Complete Time: 13:41 snw 01/14 13:26 Order name: IV Saline Lock - Large Bore; Complete Time: 13:41 snw 01/14 13:26 Order name: Labs collected and sent; Complete Time: 13:41 snw 01/14 13:26 Order name: O2 Per Protocol; Complete Time: 13:41 snw 01/14 13:26 Order name: O2 Sat Monitoring; Complete Time: 13:41 snw 01/14 13:33 Order name: Misc. Order: lidocaine 1% neb tx 3ml NS with 3ml lidocaine at flowrate of snw 8; Complete Time: 13:45 01/14 14:17 Order name: CT Chest For PE Angio; Complete Time: 15:31 snw 01/14 14:17 Order name: CT Abd/Pelvis - IV Contrast Only; Complete Time: 15:31 snw 01/14 14:34 Order name: RAD; Complete Time: 14:36 EDMS 01/14 16:13 Order name: Urine Dipstick--Ancillary (enter results) eb 01/14 16:14 Order name: Urine --Ancillary (enter results) eb 01/14 16:30 Order name: Urine Culture EDMS Administered Medications: 13:45 Drug: Tussionex Pennkinetic ER 5 ml Route: PO; sv 14:30 Follow up: Response: No adverse reaction sv 13:46 Drug: NS 0.9% (30 ml/kg) 30 ml/kg Route: IV; Rate: bolus; Site: right antecubital; sv 15:00 Follow up: Response: No adverse reaction; IV Status: Completed infusion; IV Intake: sv 1800ml 13:46 Drug: Valium 5 mg Route: IVP; Site: right antecubital; sv 14:30 Follow up: Response: No adverse reaction sv 13:49 CANCELLED (Duplicate Order): NS 0.9% (30 ml/kg) 30 ml/kg IV at bolus once; Sepsis sv Protocol Disposition: 01/14/19 16:04 Discharged to Home. Impression: Acute bronchitis. - Condition is Stable. - Discharge Instructions: Acute Bronchitis, Adult, Steps to Quit Smoking, Smoking Hazards, Cough, Adult, Rehydration, Adult. - Prescriptions for Zyrtec 10 mg Oral Tablet - take 1 tablet by ORAL route once daily As needed; 20 tablet. Tessalon Perles 100 mg Oral Capsule - take 1 capsule by ORAL route every 8 hours As needed; 15 capsule. Albuterol Sulfate 2.5 mg /3 mL (0.083 %) Inhalation Solution for Nebulization - inhale 1 unit by NEBULIZATION route every 8 hours As needed; 1 box. Prednisone 20 mg Oral Tablet - take 2 tablet by ORAL route once daily for 5 days; 10 tablet. Albuterol Sulfate 90 mcg/actuation - inhale 1-2 puff by INHALATION route every 4-6 hours; 1 Inhaler. - Work release form, Medication Reconciliation Form, Thank You Letter, Antibiotic Education, Prescription Opioid Use form. - Follow up: Private Physician; When: 2 - 3 days; Reason: Recheck today's complaints, Continuance of care, Re-evaluation by your physician. Follow up: Emergency Department; When: As needed; Reason: Worsening of condition. Addendum: 01/17/2019 09:10 Co-signature as Attending Physician, Mateus Cervantes MD I agree with the assessment and k dr plan of care. Signatures: Dispatcher [employer] EDWY Jayshree Guajardo RN RN ajYue Yoder RN RN sv Rittger, Kevin, MD MD [facility] Kailyn Quach, ASSOCIATE MEDICAL DIRECTOR-C ASSOCIATE MEDICAL DIRECTOR-[employer] Corrections: (The following items were deleted from the chart) 01/14 13:47 13:26 Cardiac monitoring ordered. sv sv 13:48 13:26 Urine Dipstick-Ancillary ordered. sv sv 13:49 13:26 NS 0.9% (30 ml/kg) 30 ml/kg IV at bolus once; Sepsis Protocol ordered. sv sv 13:50 13:26 Accucheck ordered. sv sv 14:27 13:35 Chest Single View+RAD.RAD.BRZ ordered. [facility] EDMS 14:38 14:09 Influenza Screen (A ordered. [facility] EDMS 16:16 13:33 BLOOD CULTURE*+BA.LAB.BRZ ordered. [facility] 17:11 16:04 01/14/2019 16:04 Discharged to Home. Impression: Acute bronchitis. Condition is sv Stable. Forms are Medication Reconciliation Form, Thank You Letter, Antibiotic Education, Prescription Opioid Use. Follow up: Private Physician; When: 2 - 3 days; Reason: Recheck today's complaints, Continuance of care, Re-evaluation by your physician. Follow up: Emergency Department; When: As needed; Reason: Worsening of condition. snw
--- NOTE | 2019-01-14 16:06 | ER ---
Nurse's Notes [facility] Name: Heydi Robins Age: 28 yrs Sex: Female : 1990 Arrival Date: 01/14/2019 Time: 12:49 Bed 6 Private MD: Unknown, Unknown Diagnosis: Acute bronchitis Presentation: 01/14 13:02 Presenting complaint: Patient states: Productive cough for the past 6 days, shortness aj1 of breath. States that she has been coughing up blood-tinged sputum today. Reports fever at home. TMax 103. Patient last took Tylenol at 0330 this morning. Transition of care: patient was not received from another setting of care. Onset of symptoms was December 2018. Risk Assessment: Do you want to hurt yourself or someone else? Patient reports no desire to harm self or others. Initial Sepsis Screen: Does the patient meet any 2 criteria? RR > 20 per min. HR > 90 bpm. Does the patient have a suspected source of infection? Yes: Productive cough/pneumonia. Care prior to arrival: None. 13:02 Method Of Arrival: Ambulatory aj1 13:02 Acuity: JOYCELYN 2 aj1 Triage Assessment: 13:05 General: Appears uncomfortable, Behavior is calm, cooperative, appropriate for age. aj1 Pain: Complains of pain in chest Pain currently is 9 out of 10 on a pain scale. Neuro: Level of Consciousness is awake, alert, obeys commands, Oriented to person, place, time, situation. Cardiovascular: Patient's skin is warm and dry. Respiratory: Reports shortness of breath cough that is productive, Airway is patent Respiratory effort is even, unlabored, Respiratory pattern is regular, symmetrical, Onset: The symptoms/episode began/occurred one week ago, the patient has mild shortness of breath. 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 - Social history:: Smoking status: Patient/guardian denies using tobacco, Patient uses vape for tobacco. - Ebola Screening: : Patient denies travel to an Ebola-affected area in the 21 days before illness onset. Screenin:40 Abuse screen: Denies threats or abuse. Denies injuries from another. Nutritional sv screening: No deficits noted. Tuberculosis screening: No symptoms or risk factors identified. Fall Risk None identified. Assessment: 13:30 General: Appears in no apparent distress. uncomfortable, well developed, Behavior is sv cooperative, restless. General: Reports fever. Pain: Complains of pain in chest Pain currently is 9 out of 10 on a pain scale. Pain began about a week ago Is intermittent, episodic. Neuro: Level of Consciousness is awake, alert, obeys commands, Oriented to person, place, time, situation, Moves all extremities. Full function Gait is steady. Cardiovascular: Reports chest pain, Heart tones S1 S2 present Patient's skin is warm and dry. Pulses are 3+ in right radial artery and left radial artery Rhythm is sinus rhythm. Respiratory: Reports shortness of breath on exertion cough that is productive, hacking, persistent pain with cough pain with respiration Airway is patent Respiratory effort is even, unlabored, Respiratory pattern is symmetrical, tachypnea Breath sounds with wheezes bilaterally. Derm: Skin is pink, warm \T\ dry. 14:00 Reassessment: Patient appears in no apparent distress at this time. No changes from sv previously documented assessment. Patient and/or family updated on plan of care and expected duration. Pain level reassessed. Patient is alert, oriented x 3, equal unlabored respirations, skin warm/dry/pink. 15:20 Reassessment: Patient appears in no apparent distress at this time. Patient and/or sv family updated on plan of care and expected duration. Pain level reassessed. Patient is alert, oriented x 3, equal unlabored respirations, skin warm/dry/pink. 16:30 Reassessment: Patient appears in no apparent distress at this time. Patient and/or sv family updated on plan of care and expected duration. Pain level reassessed. Patient is alert, oriented x 3, equal unlabored respirations, skin warm/dry/pink. Patient states symptoms have improved. Vital Signs: 13:05 BP 133 / 91; Pulse 132; Resp 24; Temp 98.0; Pulse Ox 100% on R/A; Weight 61.23 kg (R); aj1 Height 5 ft. 0 in. (152.40 cm) (R); Pain 9/10; 13:49 BP 137 / 90; Pulse 94; Resp 24; Pulse Ox 100% on Nebulizer Mask; sv 14:30 BP 114 / 87; Pulse 105; Resp 22; Pulse Ox 100% ; sv 15:49 BP 109 / 78; Pulse 90; Resp 23; Temp 97.6(O); Pulse Ox 100% on R/A; jb1 16:15 BP 111 / 88; Pulse 90; Resp 20; Pulse Ox 99% ; sv 13:05 Body Mass Index 26.37 (61.23 kg, 152.40 cm) aj1 ED Course: 12:49 Patient arrived in ED. ag5 12:50 Yue Latham MD is Private Physician. ag5 12:53 Unknown, Unknown is Private Physician. ag5 13:04 Triage completed. aj1 13:20 First set of blood cultures drawn by me. jb1 13:23 Khang Lo PA is PHCP. cp 13:23 Mateus Cervantes MD is Attending Physician. cp 13:24 PHCP role handed off by Khang Lo PA snw 13:24 Kailyn Quach FNP-C is PHCP. snw 13:26 Yue Suarez, RN is Primary Nurse. sv 13:26 Inserted saline lock: 20 gauge in right antecubital area, using aseptic technique. jb1 Blood collected. 13:30 Arm band placed on. sv 13:35 Second set of blood cultures drawn by me. jb1 13:40 Initial lab(s) drawn, by me, sent to lab. jb1 13:40 EKG done, by mri special procedures technologist. reviewed by Kailyn ELENA Flu and/or RSV swab sent to [facility]. 13:40 Patient has correct armband on for positive identification. Placed in gown. Bed in low sv position. Call light in reach. Adult w/ patient. Pulse ox on. NIBP on. Door closed. Head of bed elevated. 14:14 Basic Metabolic Panel Sent. sv 14:14 CBC with Diff Sent. sv 14:14 Ckmb Sent. sv 14:14 CPK Sent. sv 14:14 Lactate Sent. sv 14:14 LFT's Sent. sv 14:14 Lipase Sent. sv 14:14 Procalcitonin Sent. sv 14:14 Protime (+inr) Sent. sv 14:14 Ptt, Activated Sent. sv 14:14 CBC with Diff Sent. sv 14:23 ABG drawn. by RT staff, on room air. sv 15:01 CT Chest For PE Angio In Process Unspecified. EDMS 15:07 CT Abd/Pelvis - IV Contrast Only In Process Unspecified. EDMS 15:47 EKG done, by mri special procedures technologist. reviewed by Kailyn ELENA. 3 16:30 No provider procedures requiring assistance completed. IV discontinued, intact, sv bleeding controlled, No redness/swelling at site. Pressure dressing applied. Administered Medications: 13:45 Drug: Tussionex Pennkinetic ER 5 ml Route: PO; sv 14:30 Follow up: Response: No adverse reaction sv 13:46 Drug: NS 0.9% (30 ml/kg) 30 ml/kg Route: IV; Rate: bolus; Site: right antecubital; sv 15:00 Follow up: Response: No adverse reaction; IV Status: Completed infusion; IV Intake: sv 1800ml 13:46 Drug: Valium 5 mg Route: IVP; Site: right antecubital; sv 14:30 Follow up: Response: No adverse reaction sv 13:49 CANCELLED (Duplicate Order): NS 0.9% (30 ml/kg) 30 ml/kg IV at bolus once; Sepsis sv Protocol Intake: 15:00 IV: 1800ml; Total: 1800ml. sv Outcome: 16:04 Discharge ordered by . snw 16:30 Discharged to home ambulatory, with family. sv 16:30 Condition: stable 16:30 Discharge instructions given to patient, family, Instructed on discharge instructions, follow up and referral plans. medication usage, Demonstrated understanding of instructions, follow-up care, medications, Prescriptions given X x5 16:30 Patient left the ED. sv Signatures: Dispatcher [employer] EDMS Bryon Dixon jb1 Jayshree Guajardo RN RN Yue Khan RN RN sv Therrien, Shelly, ALISON-C COMPUTERIZED TABLE CUTTER-Csnw Khang Lo PA PA cp Montes, Shakira 3 Pratima Metzger ag5 Corrections: (The following items were deleted from the chart) 13:40 13:26 Inserted saline lock: 20 gauge in right jb1 jb1 14:27 13:50 To radiology for Chest Single View+RAD.RAD.BRZ. sv EDMS : 17:10 No provider procedures requiring assistance completed. sv sv 17:10 IV discontinued, intact, bleeding controlled, No redness/swelling at site. sv Pressure dressing applied, sv 17:11 Patient left the ED. sv sv
[2019-01-14 16:26] LABS: Urine Bacteria <20 /HPF (<20); Urine RBC <5 /HPF (NONE SEEN)
[2019-01-14 16:27] LABS: Urine Culture Reflex Order REFLEXED
[2019-01-14 17:23] LABS: Urine Blood NEGATIVE (NEG); Urine Glucose NEGATIVE (NEG); Urine Protein NEGATIVE (NEG); Urine Specific Gravity 1.015 (1.005-1.030); Urine pH 8.5 (5.0-7.0)
[2019-01-14 17:25] LABS: Urine Specific Gravity 1.015 (1.005-1.030)
[2019-01-14 17:38] VITALS: O2SAT 100
[2019-01-14 17:42] VITALS: BP 109/78; TEMP 97.6
--- NOTE | 2019-01-15 14:16 | EKG ---
Test Date: 2019-01-14 Test Time: 15:19:58 Cover Stitch Machine Operator: JADEN MEASUREMENT RESULTS: Intervals: Rate: 87 MS: 134 QRSD: 82 QT: 382 QTc: 459 [place]: P: 66 MS: 134 QRS: 135 T: 71 INTERPRETIVE STATEMENTS: Normal sinus rhythm Right axis deviation Abnormal ECG Compared to ECG 07/21/2018 14:31:07 Right-axis deviation now present Sinus arrhythmia no longer present Short MS interval no longer present Right superior axis no longer present Electronically Signed On 01-15-19 14:13:39 CDT by Acosta Parham
== END 2019-01-14 17:11 | disposition home or self-care (01) ==
LOC: ER 12:47
DX: J20.9 Acute bronchitis, unspecified (principal); G40.909 Epilepsy, unspecified, not intractable, without status epilepticus; E03.9 Hypothyroidism, unspecified; Z72.0 Tobacco use; Z88.2 Allergy status to sulfonamides
CPT/HCPCS: 36415; 71045; 71275; 74177; 80048; 80076; 81003; 81015; 81025; 82550; 82553; 82805; 83605; 83690; 84145; 84484; 85025; 85379; 85610; 85730; 87040; 87086; 87088; 87804; 93005; 96361; 96365; 96374; 96375; 99285; J3360; J7030; Q9967

== ENCOUNTER 2019-02-02 08:45 | Emergency (ER) | payer SELFPAY ==
[2019-02-02 09:29] LABS: Urine Blood 2+ (NEG); Urine Glucose NEGATIVE (NEG); Urine Protein 2+ (NEG); Urine Specific Gravity 1.025 (1.005-1.030)
--- NOTE | 2019-02-02 09:37 | ER ---
Nurse's Notes [facility] Name: Heydi Robins Age: 28 yrs Sex: Female : 1990 Arrival Date: 02/02/2019 Time: 08:47 Bed 14 Private MD: Diagnosis: Cystitis Presentation: 02/02 08:58 Presenting complaint: Patient states: suprapubic discomfort, low back pain and burning ss with urination that began 2 days ago. Pt also reports fever. Transition of care: patient was not received from another setting of care. Onset of symptoms was February 01, 2019. Risk Assessment: Do you want to hurt yourself or someone else? Patient reports no desire to harm self or others. Initial Sepsis Screen: Does the patient meet any 2 criteria? No. Patient's initial sepsis screen is negative. Does the patient have a suspected source of infection? Yes: Dysuria/Frequency/Urgency/UTI. Care prior to arrival: None. 08:58 Method Of Arrival: Ambulatory ss 08:58 Acuity: JOYCELYN 4 ss 09:05 Note Pt reports she had taken Tylenol this AM at 0745. ss Historical: - Allergies: 08:58 Sulfa (Sulfonamide Antibiotics); ss - Home Meds: 09:05 Keppra Oral [Active]; levothyroxine 75 mcg tab 1 tab once daily [Active]; ss - PMHx: 08:58 Hypothyroidism; Migraines; Seizures; ss - Immunization history:: Adult Immunizations up to date. - Social history:: Smoking status: Patient uses tobacco products, "vape". - Ebola Screening: : Patient denies exposure to infectious person Patient denies travel to an Ebola-affected area in the 21 days before illness onset. Screenin:00 Abuse screen: Denies threats or abuse. Denies injuries from another. Nutritional jl7 screening: No deficits noted. Tuberculosis screening: No symptoms or risk factors identified. Fall Risk None identified. Assessment: 09:18 General: Appears in no apparent distress. uncomfortable, ill, Behavior is calm, jl7 cooperative, appropriate for age. Pain: Complains of pain in lumbar area Pain radiates to suprapubic area and right lower quadrant Pain currently is 10 out of 10 on a pain scale. Pain began 2-3 days ago. Is continuous. Neuro: Level of Consciousness is awake, alert, obeys commands, Oriented to person, place, time, situation, Gait is steady. Cardiovascular: Patient's skin is warm and dry. Respiratory: Airway is patent Respiratory effort is even, unlabored, Respiratory pattern is regular, symmetrical. : Reports burning with urination, urinary frequency. Derm: Skin is pink, warm \\T\\ dry. 09:18 Reassessment: PO challenge with a cup of water, pt able to keep it down at this time. jl7 Vital Signs: 09:05 BP 109 / 70; Pulse 94; Resp 18; Temp 98.3(O); Pulse Ox 100% on R/A; Weight 63.5 kg; ss Height 5 ft. 0 in. (152.40 cm); Pain 1010; 09:05 Body Mass Index 27.34 (63.50 kg, 152.40 cm) ED Course: 08:47 Patient arrived in ED. as 09:00 Elena Paige, RN is Primary Nurse. jl7 09:00 Triage completed. ss 09:00 Arm band placed on right wrist. ss 09:00 Patient has correct armband on for positive identification. Bed in low position. Call jl7 light in reach. Side rails up X 1. 09:01 Familia Brar PA is PHCP. jr8 09:01 Khang Brooks MD is Attending Physician. jr8 09:10 Urine collected: clean catch specimen, cloudy. dh3 09:58 No provider procedures requiring assistance completed. Patient did not have IV access jl7 during this emergency room visit. Administered Medications: 09:57 Drug: Motrin 600 mg Route: PO; jl7 09:58 Follow up: Response: Medication administered at discharge. jl7 09:57 Drug: Pyridium 200 mg Route: PO; jl7 09:58 Follow up: Response: Medication administered at discharge. jl7 09:57 Drug: Macrobid 100 mg Route: PO; jl7 09:57 Follow up: Response: Medication administered at discharge. jl7 Outcome: 09:36 Discharge ordered by . jr8 09:58 Discharged to home ambulatory. jl7 09:58 Condition: stable 09:58 Discharge instructions given to patient, Instructed on discharge instructions, follow up and referral plans. medication usage, Demonstrated understanding of instructions, follow-up care, medications, Prescriptions given X 4. 09:59 Patient left the ED. jl7 Addendum: 02/05/2019 07:41 Addendum: Culture Results: Positive urine culture. No further action required. Bacteria i w sensitive to prescribed antibiotic. Signatures: Brandy Verdugo Irene, RN RN Ceci Vincent RN RN Familia Holt PA PA jr8 Elena Paige RN RN jl7 Eda Latham [facility]
--- NOTE | 2019-02-02 09:37 | EDPHYS ---
Physician Documentation [facility] Name: Heydi Robins Age: 28 yrs Sex: Female : 1990 Arrival Date: 02/02/2019 Time: 08:47 Bed 14 Private MD: RUBIO Physician Khang Brooks HPI: 02/02 09:38 This 28 yrs old Female presents to ER via Ambulatory with complaints of Pain jr8 With Urination, Back Pain, Fever. 09:38 Onset: The symptoms/episode began/occurred 3 day(s) ago. Pain in lower back, difficulty jr8 urinating for the last three days, a couple of episodes of vomiting. Historical: - Allergies: 08:58 Sulfa (Sulfonamide Antibiotics); ss - Home Meds: 09:05 Keppra Oral [Active]; levothyroxine 75 mcg tab 1 tab once daily [Active]; ss - PMHx: 08:58 Hypothyroidism; Migraines; Seizures; ss - Immunization history:: Adult Immunizations up to date. - Social history:: Smoking status: Patient uses tobacco products, "vape". - Ebola Screening: : Patient denies exposure to infectious person Patient denies travel to an Ebola-affected area in the 21 days before illness onset. ROS: 09:38 Constitutional: Negative for fever, chills, and weight loss, Eyes: Negative for injury, jr8 pain, redness, and discharge, ENT: Negative for injury, pain, and discharge, Neck: Negative for injury, pain, and swelling, Cardiovascular: Negative for chest pain, palpitations, and edema, Respiratory: Negative for shortness of breath, cough, wheezing, and pleuritic chest pain, Abdomen/GI: Negative for abdominal pain, nausea, vomiting, diarrhea, and constipation, Back: Negative for injury and pain. 09:38 : Positive for difficulty urinating. Exam: 09:40 Constitutional: This is a well developed, well nourished patient who is awake, alert, jr8 and in no acute distress. Head/Face: Normocephalic, atraumatic. Eyes: Pupils equal round and reactive to light, extra-ocular motions intact. Lids and lashes normal. Conjunctiva and sclera are non-icteric and not injected. Cornea within normal limits. Periorbital areas with no swelling, redness, or edema. ENT: Nares patent. No nasal discharge, no septal abnormalities noted. Tympanic membranes are normal and external auditory canals are clear. Oropharynx with no redness, swelling, or masses, exudates, or evidence of obstruction, uvula midline. Mucous membranes moist. Neck: Trachea midline, no thyromegaly or masses palpated, and no cervical lymphadenopathy. Supple, full range of motion without nuchal rigidity, or vertebral point tenderness. No Meningismus. Chest/axilla: Normal chest wall appearance and motion. Nontender with no deformity. No lesions are appreciated. Cardiovascular: Regular rate and rhythm with a normal S1 and S2. No gallops, murmurs, or rubs. Normal PMI, no JVD. No pulse deficits. Respiratory: Lungs have equal breath sounds bilaterally, clear to auscultation and percussion. No rales, rhonchi or wheezes noted. No increased work of breathing, no retractions or nasal flaring. Abdomen/GI: Soft, non-tender, with normal bowel sounds. No distension or tympany. No guarding or rebound. No evidence of tenderness throughout. Back: No spinal tenderness. No costovertebral tenderness. Full range of motion. MS/ Extremity: Pulses equal, no cyanosis. Neurovascular intact. Full, normal range of motion. Neuro: Awake and alert, GCS 15, oriented to person, place, time, and situation. Cranial nerves II-XII grossly intact. Motor strength 5/5 in all extremities. Sensory grossly intact. Cerebellar exam normal. Normal gait. Vital Signs: 09:05 BP 109 / 70; Pulse 94; Resp 18; Temp 98.3(O); Pulse Ox 100% on R/A; Weight 63.5 kg; ss Height 5 ft. 0 in. (152.40 cm); Pain 10/10; 09:05 Body Mass Index 27.34 (63.50 kg, 152.40 cm) ss MDM: 09:02 Patient medically screened. [facility] 09:34 Data reviewed: vital signs, lab test result(s), urinalysis, and as a result, I will jr8 discharge patient. Data interpreted: Pulse oximetry: on room air is 100 %. Interpretation: normal. Counseling: I had a detailed discussion with the patient and/or guardian regarding: the historical points, exam findings, and any diagnostic results supporting the discharge/admit diagnosis, lab results. ED course: Pt tolerating PO, urinary sx and pain in lower back/suprapubic area. Discussed return precautions, urine + for nitrite. 02/02 09:08 Order name: Urine Microscopic Only 8 02/02 09:10 Order name: Urine Dipstick--Ancillary (enter results); Complete Time: 09:55 gm 02/02 09:10 Order name: Urine --Ancillary (enter results); Complete Time: 09:55 gm 02/02 09:08 Order name: Urine Dipstick-Ancillary (obtain specimen); Complete Time: 09:15 8 02/02 09:19 Order name: PO challenge; Complete Time: 09:22 8 Administered Medications: 09:57 Drug: Motrin 600 mg Route: PO; 7 09:58 Follow up: Response: Medication administered at discharge. 7 09:57 Drug: Pyridium 200 mg Route: PO; jl7 09:58 Follow up: Response: Medication administered at discharge. 09:57 Drug: Macrobid 100 mg Route: PO; 09:57 Follow up: Response: Medication administered at discharge. jl7 Disposition: 02/03 06:41 Co-signature as Attending Physician, Khang Brooks MD I agree with the assessment and fredi plan of care. Disposition: 02/02/19 09:36 Discharged to Home. Impression: Cystitis. - Condition is Stable. - Discharge Instructions: Urinary Tract Infection, Adult. - Prescriptions for Ibuprofen 600 mg Oral Tablet - take 1 tablet by ORAL route every 6 hours As needed take with food; 20 tablet. Pyridium 200 mg Oral Tablet - take 1 tablet by ORAL route every 8 hours for 3 days; 9 tablet. Zofran 4 mg Oral Tablet - take 1 tablet by ORAL route every 12 hours As needed; 20 tablet. Macrobid 100 mg Oral Capsule - take 1 capsule by ORAL route every 12 hours for 7 days; 14 capsule. - Medication Reconciliation Form, Thank You Letter, Antibiotic Education form. - Follow up: Private Physician; When: 2 - 3 days; Reason: Recheck today's complaints, Re-evaluation by your physician. - Problem is new. - Symptoms are unchanged. Signatures: Dispatcher [employer] Khang Lee MD MD cha Smirch, Shelby, RN RN Familia Holt PA PA jr8 Elena Paige RN RN jl7 Corrections: (The following items were deleted from the chart) 10 09:59 09:36 02/02/2019 09:36 Discharged to Home. Impression: Cystitis. Condition is Stable. jl7 Forms are Medication Reconciliation Form, Thank You Letter, Antibiotic Education, Prescription Opioid Use. Follow up: Private Physician; When: 2 - 3 days; Reason: Recheck today's complaints, Re-evaluation by your physician. Problem is new. Symptoms are unchanged. jr8
[2019-02-02] MEDS ORDERED: IBUPROFEN 400 MG TAB ONE (09:48)
[2019-02-02] MEDS ORDERED: PHENAZOPYRIDINE 100MG TAB PO ONE (09:48)
[2019-02-02] MEDS ORDERED: NITROFURAN MACRO 100 MG CAP PO ONE (09:49)
[2019-02-02] MEDS ORDERED: IBUPROFEN 200 MG TAB PO ONE (09:50)
[2019-02-02 10:09] LABS: Urine Bacteria 20-50 /HPF (<20); Urine Mucus SLIGHT /HPF (NONE SEEN); Urine RBC 20-50 /HPF (NONE SEEN)
[2019-02-02 10:10] LABS: Urine Culture Reflex Order REFLEXED
== END 2019-02-02 09:59 | disposition home or self-care (01) ==
LOC: ER 08:45
DX: N30.90 Cystitis, unspecified without hematuria (principal); E03.9 Hypothyroidism, unspecified; R56.9 Unspecified convulsions; Z88.2 Allergy status to sulfonamides; Z72.0 Tobacco use
CPT/HCPCS: 81003; 81015; 81025; 87077; 87086; 87088; 87186; 99283

== ENCOUNTER 2019-02-25 10:43 | Emergency (ER) | payer SELFPAY ==
[2019-02-25] MEDS ORDERED: LIDOCAINE 2% MPF 5 ML VIAL ONE (11:38)
[2019-02-25] MEDS ORDERED: TETANUS & DIPHTHERIA TOX,ADULT 0.5 ML VIAL ONE (11:38)
--- NOTE | 2019-02-25 12:26 | EDPHYS ---
Physician Documentation [facility] Name: Heydi Robins Age: 28 yrs Sex: Female : 1990 Arrival Date: 02/25/2019 Time: 10:45 Bed 8 Private MD: ED Physician Phil Ashley HPI: 02/25 11:10 This 28 yrs old Female presents to ER via Ambulatory with complaints of jmm Laceration - Finger. 11:10 The patient or guardian reports injury, a laceration. Onset: The symptoms/episode jmm began/occurred acutely. Modifying factors: The symptoms are alleviated by nothing, the symptoms are aggravated by nothing. Associated signs and symptoms: Pertinent negatives: cyanosis distally, decreased sensation distally, numbness distally, tingling distally. This is a 28 year old female with a history of epilepsy that presents to the ED with complaints of left index finger pain which radiates up her forearm. Patient states she cut her finger with a glass bottle approx 12 hours prior. Unsure on tetanus immunization. Patient states the pain radiates up her left forearm. Denies fever or chills. . 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 - Social history:: Smoking status: Patient/guardian denies using tobacco. - Ebola Screening: : No symptoms or risks identified at this time. ROS: 11:10 Constitutional: Negative for fever, chills, and weight loss, Cardiovascular: Negative jmm for chest pain, palpitations, and edema, Respiratory: Negative for shortness of breath, cough, wheezing, and pleuritic chest pain. 11:10 Skin: Positive for laceration(s). 11:10 All other systems are negative. Exam: 11:10 Constitutional: This is a well developed, well nourished patient who is awake, alert, jmm and in no acute distress. Head/Face: atraumatic. Eyes: EOMI, no conjunctival erythema appreciated ENT: Moist Mucus Membranes Neck: Trachea midline, Supple Chest/axilla: Normal chest wall appearance and motion. Cardiovascular: Regular rate and rhythm. No edema appreciated Respiratory: Normal respirations, no respiratory distress appreciated Abdomen/GI: Non distended, soft Back: Normal ROM 11:10 Musculoskeletal/extremity: FROM appreciated to the left 2nd distal phalanx, < 2 sec dist cap refill, NVI. 11:10 Skin: laceration noted to the left index finger distally, bleeding controlled. 11:10 Neuro: Orientation: is normal, Mentation: is normal, Memory: is normal. 11:10 Psych: Behavior/mood is pleasant, cooperative. Vital Signs: 10:59 BP 112 / 69; Pulse 95; Resp 16; Temp 97.1; Pulse Ox 100% on R/A; Weight 63.5 kg; Height la1 5 ft. 0 in. (152.40 cm); 13:02 BP 115 / 70; Pulse 89; Resp 16 S; Pulse Ox 100% on R/A; jl7 10:59 Body Mass Index 27.34 (63.50 kg, 152.40 cm) la1 Procedures: 12:21 Nerve block: (digital) of palmar aspect of proxima; phalanx of right index finger [facility] Medication: Lidocaine 2% without epinephrine, Amount: 3 mls were injected, Effect: the patient has resolution of the pain, Performed by Jean Paul MOE Patient tolerated well. MDM: 11:10 Patient medically screened. [facility] 12:22 Data reviewed: vital signs, nurses notes. Counseling: I had a detailed discussion with andre the patient and/or guardian regarding: the historical points, exam findings, and any diagnostic results supporting the discharge/admit diagnosis, the need for outpatient follow up, to return to the emergency department if symptoms worsen or persist or if there are any questions or concerns that arise at home. ED course: No fb appreciated on PE. Patient will be covered with oral anx. Currently no erythema or induration, FROM appreciated, I do not suspect flexor tenosynovitis. Patient advised to follow up with pcp or hand for reevaluation. patient given wound infection return precautions. Patient understood and agrees with the plan of care. . 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 Exp: jl7 09/30/2020. Lot #: [id number]. } Route: IM; Site: right deltoid; 12:16 Follow up: Response: No adverse reaction jl7 Disposition: 14:49 Co-signature as Attending Physician, Phil Ashley MD. rn Disposition: 02/25/19 12:25 Discharged to Home. Impression: Finger Laceration. - Condition is Stable. - Discharge Instructions: Nonsutured Laceration Care. - Prescriptions for Cephalexin 500 mg Oral Capsule - take 1 capsule by ORAL route every 6 hours for 10 days; 40 capsule. - Medication Reconciliation Form, Thank You Letter, Antibiotic Education, Prescription Opioid Use, Work release form form. - Follow up: Mark Capellan MD; When: 2 - 3 days; Reason: Recheck today's complaints, Continuance of care, Re-evaluation by your physician. Signatures: Jean Paul Fall PA PA jmm Nieto, Roman, MD MD rn Attema, Lee, RN RN la1 Elena Paige RN RN jl7 Corrections: (The following items were deleted from the chart) 13:06 12:25 02/25/2019 12:25 Discharged to Home. Impression: Finger Laceration. Condition is jl Stable. Forms are Medication Reconciliation Form, Thank You Letter, Antibiotic Education, Prescription Opioid Use. Follow up: Mark Capellan; When: 2 - 3 days; Reason: Recheck today's complaints, Continuance of care, Re-evaluation by your physician. andre
--- NOTE | 2019-02-25 12:26 | ER ---
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 They put super glue on it last night but now my arm is starting to feel swollen and the finger hurts a lot. Transition of care: patient was not received from another setting of care. Complicating Factors: There are no complicating factors for this patient. Onset of symptoms was February 25, 2019. Risk Assessment: Do you want to hurt yourself or someone else? Patient reports no desire to harm self or others. Initial Sepsis Screen: Does the patient meet any 2 criteria? No. Patient's initial sepsis screen is negative. Does the patient have a suspected source of infection? No. Patient's initial sepsis screen is negative. Care prior to arrival: None. 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 - Social history:: Smoking status: Patient/guardian denies using tobacco. - Ebola Screening: : No symptoms or risks identified at this time. Screenin:00 Abuse screen: Denies threats or abuse. Denies injuries from another. Nutritional jl7 screening: No deficits noted. Tuberculosis screening: No symptoms or risk factors identified. Fall Risk None identified. Assessment: 12:00 General: Appears in no apparent distress. uncomfortable, Behavior is calm, cooperative, jl7 appropriate for age. Pain: Complains of pain in palmar aspect of distal phalanx of left index finger. Neuro: Level of Consciousness is awake, alert, obeys commands, Oriented to person, place, time, situation. Cardiovascular: Patient's skin is warm and dry. Respiratory: Airway is patent Respiratory effort is even, unlabored, Respiratory pattern is regular, symmetrical. Derm: Skin is pink, warm \T\ dry. Musculoskeletal: Range of motion: intact in all extremities. Injury Description: Laceration sustained to palmar aspect of distal phalanx of left index finger is contaminated, 0.5 to 2.5 cm long, was sustained 12-24 hours ago. is bleeding no active bleeding noted. Vital Signs: 10:59 BP 112 / 69; Pulse 95; Resp 16; Temp 97.1; Pulse Ox 100% on R/A; Weight 63.5 kg; Height la1 5 ft. 0 in. (152.40 cm); 13:02 BP 115 / 70; Pulse 89; Resp 16 S; Pulse Ox 100% on R/A; jl7 10:59 Body Mass Index 27.34 (63.50 kg, 152.40 cm) la1 ED Course: 10:45 Patient arrived in ED. as 10:59 Triage completed. la1 11:00 [facility] band [facility] on [facility] 11:02 Jean Paul Fall PA is PHCP. [facility] 11:02 Phil Ashley MD is Attending Physician. [facility] 11:47 Elena Paige RN is Primary Nurse. jl7 12:00 Patient has correct armband on for positive identification. Bed in low position. Call jl7 light in reach. Side rails up X 1. 12:00 No provider procedures requiring assistance completed. Patient did not have IV access jl7 during this emergency room visit. 12:15 Wound care: to laceration located on palmar aspect of distal phalanx of left index jl7 finger was cleaned with Hibiclens, irrigated with normal saline, dressed with Neosporin, 4X4s, Patient tolerated well. 12:25 Mark Capellan MD is Referral Physician. 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 Exp: jl7 09/30/2020. Lot #: [id number]. } Route: IM; Site: right deltoid; 12:16 Follow up: Response: No adverse reaction jl7 Outcome: 12:25 Discharge ordered by MD. powell 13:05 Discharged to home ambulatory. jl7 13:05 Condition: stable 13:05 Discharge instructions given to patient, Instructed on discharge instructions, follow up and referral plans. medication usage, wound care, Demonstrated understanding of instructions, follow-up care, medications, wound care, Prescriptions given X 1. 13:06 Patient left the ED. jl7 Signatures: Jean Paul Fall PA PA jmm Martinez, Amelia as Attema, Lee RN RN la1 Elena Paige RN RN jl7 Corrections: (The following items were deleted from the chart) 13:05 12:00 Pain: Complains of pain in right index finger jl7 jl7 13:05 12:00 Injury Description: Laceration sustained to palmar aspect of proxima; phalanx of jl7 right index finger is contaminated, 0.5 to 2.5 cm long, was sustained 12-24 hours ago. is bleeding no active bleeding noted. jl7
[2019-02-25 13:22] VITALS: BP 115/70; O2SAT 100
[2019-02-25 13:23] VITALS: TEMP 97.1
== END 2019-02-25 13:06 | disposition home or self-care (01) ==
LOC: ER 10:43
DX: S61.211A Laceration without foreign body of left index finger without damage to nail, initial encounter (principal); W25.XXXA Contact with sharp glass, initial encounter; Y93.89 Activity, other specified; Y92.89 Other specified places as the place of occurrence of the external cause; Y99.0 Civilian activity done for income or pay
CPT/HCPCS: 64450; 90471; 90714; 99284

== ENCOUNTER 2019-04-28 19:46 | Emergency (ER) | payer SELFPAY ==
[2019-04-28] MEDS ORDERED: DIAZEPAM 2 MG TABLET ONE (21:51)
[2019-04-28] MEDS ORDERED: HYDROCODONE/APAP 5/325 MG TAB ONE (21:51)
--- NOTE | 2019-04-28 22:05 | EDPHYS ---
Physician Documentation [facility] Name: Heydi Robins Age: 28 yrs Sex: Female : 1990 Arrival Date: 04/28/2019 Time: 19:48 Bed 30 Private MD: RUBIO Physician Khang Brooks HPI: 04/28 22:07 This 28 yrs old Female presents to ER via Ambulatory with complaints of Wrist snw Pain. 22:07 The patient or guardian reports a contusion, decreased range of motion, pain, swelling. snw The complaints affect the right wrist diffusely. Context: The problem was sustained at home, resulted from a fall, slipped, pt slipped and landed on right elbow, this made her angry so she punched the wall and hurt her right hand. Onset: The symptoms/episode began/occurred suddenly, this morning, and became persistent. Associated signs and symptoms: Pertinent positives: pt holding right elbow and right hand stiffly, pain with movement, tenderness in anatomic snuffbox, will splint, no obvious fx on x-ray. The patient has not experienced similar symptoms in the past. It is unknown whether or not the patient has recently seen a physician. 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 - Social history:: Smoking status: Patient uses tobacco products, vape. - Ebola Screening: : Patient negative for fever greater than or equal to 101.5 degrees Fahrenheit, and additional compatible Ebola Virus Disease symptoms. ROS: 22:11 Constitutional: Negative for fever, chills, and weight loss, Eyes: Negative for injury, snw pain, redness, and discharge, ENT: Negative for injury, pain, and discharge, Neck: Negative for injury, pain, and swelling, Cardiovascular: Negative for chest pain, palpitations, and edema, Respiratory: Negative for shortness of breath, cough, wheezing, and pleuritic chest pain, Abdomen/GI: Negative for abdominal pain, nausea, vomiting, diarrhea, and constipation, Back: Negative for injury and pain, : Negative for injury, bleeding, discharge, and swelling, Skin: Negative for injury, rash, and discoloration, Neuro: Negative for headache, weakness, numbness, tingling, and seizure. 22:11 MS/extremity: Positive for injury or acute deformity, contusion, decreased range of motion, ecchymosis, pain, tenderness, of the right elbow, right forearm, and right hand. Exam: 22:12 Constitutional: This is a well developed, well nourished patient who is awake, alert, snw and in no acute distress. Head/Face: Normocephalic, atraumatic. Eyes: Pupils equal round and reactive to light, extra-ocular motions intact. Lids and lashes normal. Conjunctiva and sclera are non-icteric and not injected. Cornea within normal limits. Periorbital areas with no swelling, redness, or edema. ENT: Nares patent. No nasal discharge, no septal abnormalities noted. Tympanic membranes are normal and external auditory canals are clear. Oropharynx with no redness, swelling, or masses, exudates, or evidence of obstruction, uvula midline. Mucous membranes moist. Neck: Trachea midline, no thyromegaly or masses palpated, and no cervical lymphadenopathy. Supple, full range of motion without nuchal rigidity, or vertebral point tenderness. No Meningismus. Chest/axilla: Normal chest wall appearance and motion. Nontender with no deformity. No lesions are appreciated. Cardiovascular: Regular rate and rhythm with a normal S1 and S2. No gallops, murmurs, or rubs. Normal PMI, no JVD. No pulse deficits. Respiratory: Lungs have equal breath sounds bilaterally, clear to auscultation and percussion. No rales, rhonchi or wheezes noted. No increased work of breathing, no retractions or nasal flaring. Abdomen/GI: Soft, non-tender, with normal bowel sounds. No distension or tympany. No guarding or rebound. No evidence of tenderness throughout. Back: No spinal tenderness. No costovertebral tenderness. Full range of motion. Neuro: Awake and alert, GCS 15, oriented to person, place, time, and situation. Cranial nerves II-XII grossly intact. Motor strength 5/5 in all extremities. Sensory grossly intact. Cerebellar exam normal. Normal gait. Psych: Awake, alert, with orientation to person, place and time. Behavior, mood, and affect are within normal limits. 22:12 Musculoskeletal/extremity: Extremities: grossly normal except: noted in the right elbow: contusion, contusion, tenderness, tenderness to right anatomic snuff box , ROM: limited active range of motion due to pain, limited passive range of motion due to pain, in the right wrist and hand, Circulation is intact in all extremities. Sensation intact. 22:12 Skin: Appearance: normal except for affected area, injury, abrasion(s), very small abrasion noted, of the right elbow, ecchymosis to right lateral forearm. Vital Signs: 20:04 BP 121 / 74; Pulse 93; Resp 17 S; Temp 99.3(O); Pulse Ox 99% on R/A; Weight 58.97 kg jd3 (R); Height 5 ft. 0 in. (152.40 cm) (R); Pain 9/10; 22:16 BP 118 / 72; Pulse 87; Resp 16; Pulse Ox 98% on R/A; Pain 9/10; sr5 20:04 Body Mass Index 25.39 (58.97 kg, 152.40 cm) jd3 MDM: 20:49 Patient medically screened. [facility] 22:07 Data reviewed: vital signs, nurses notes. Data interpreted: Pulse oximetry: on room air snw is 99 %. Interpretation: normal. Counseling: I had a detailed discussion with the patient and/or guardian regarding: the historical points, exam findings, and any diagnostic results supporting the discharge/admit diagnosis, radiology results, the need for outpatient follow up, to return to the emergency department if symptoms worsen or persist or if there are any questions or concerns that arise at home. Special discussion: Based on the patient's history, exam and DX evaluation, there is no indication for emergent intervention or inpatient TX. It is understood by the patient/guardian that if the SXs persist or worsen they need to return immediately for re-evaluation. Based on the history and exam findings, there is no indication for further emergent testing or inpatient evaluation. I discussed with the patient/guardian the need to see the orthopedic surgeon for further evaluation of the symptoms. I discussed with the patient/guardian the need to see the primary care provider for further evaluation of the symptoms. 04/28 20:08 Order name: XRAY Forearm RIGHT jd3 04/28 20:08 Order name: XRAY Hand RIGHT 3 View jd3 04/28 21:20 Order name: Thumb Spica Splint: velcro; Complete Time: 22:01 snw Administered Medications: 21:50 Drug: [place] 5 mg-325 mg 1 tabs {Note: RASS:0.} Route: PO; tr5 22:18 Follow up: Response: No change in condition sr5 21:50 Drug: Valium 2 mg Route: PO; tr5 22:18 Follow up: Response: No change in condition sr5 Disposition: 04/28/19 22:04 Discharged to Home. Impression: Contusion of right hand, Contusion of right elbow, Fall on same level from slipping, tripping and stumbling. - Condition is Stable. - Discharge Instructions: Cast or Splint Care, Adult, Hand Contusion, Head Injury, Adult, Fall Prevention in the Home, Elbow Contusion, Cryotherapy, Crush Injury of the Hand. - Prescriptions for Diclofenac Sodium 75 mg Oral Tablet Sustained Release - take 1 tablet by ORAL route 2 times per day; 30 tablet. - Work release form, Medication Reconciliation Form, Thank You Letter, Antibiotic Education, Prescription Opioid Use form. - Follow up: Emergency Department; When: As needed; Reason: Worsening of condition. Follow up: Private Physician; When: 2 - 3 days; Reason: Recheck today's complaints, Continuance of care, Re-evaluation by your physician. Follow up: Kong Agustin MD; When: 2 - 3 days; Reason: Recheck today's complaints, Continuance of care. Addendum: 05/02/2019 08:52 Co-signature as Attending Physician, Khang Brooks MD I agree with the assessment and c henry plan of care. Signatures: Dispatcher [employer] Khang Lee MD MD cha Therrien, Shelly, DENTAL LABORATORY TECHNICIAN-C DENTAL LABORATORY TECHNICIAN-Csnw Resecker, Ildefonso RN RN sr5 August Powell RN RN jd3 Jhon Henson RN RN tr5 Corrections: (The following items were deleted from the chart) 04/28 22:15 22:04 04/28/2019 22:04 Discharged to Home. Impression: Contusion of right hand; sr5 Contusion of right elbow; Fall on same level from slipping, tripping and stumbling. Condition is Stable. Forms are Medication Reconciliation Form, Thank You Letter, Antibiotic Education, Prescription Opioid Use. Follow up: Emergency Department; When: As needed; Reason: Worsening of condition. Follow up: Private Physician; When: 2 - 3 days; Reason: Recheck today's complaints, Continuance of care, Re-evaluation by your physician. Follow up: Kong Agustin; When: 2 - 3 days; Reason: Recheck today's complaints, Continuance of care. snw
--- NOTE | 2019-04-28 22:05 | ER ---
Nurse's Notes [facility] Name: Heydi Robins Age: 28 yrs Sex: Female : 1990 Arrival Date: 04/28/2019 Time: 19:48 Bed 30 Private MD: Diagnosis: Contusion of right hand;Contusion of right elbow;Fall on same level from slipping, tripping and stumbling Presentation: 04/28 20:00 Presenting complaint: Patient states: "I punched a wall and somehow I hurt my hold jd3 elbow through my hand on my right side.". Transition of care: patient was not received from another setting of care. Onset of symptoms was April 28, 2019. Risk Assessment: Do you want to hurt yourself or someone else? Patient reports no desire to harm self or others. Initial Sepsis Screen: Does the patient meet any 2 criteria? No. Patient's initial sepsis screen is negative. Does the patient have a suspected source of infection? No. Patient's initial sepsis screen is negative. Care prior to arrival: None. 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 - Social history:: Smoking status: Patient uses tobacco products, vape. - Ebola Screening: : Patient negative for fever greater than or equal to 101.5 degrees Fahrenheit, and additional compatible Ebola Virus Disease symptoms. Screenin:16 Abuse screen: Denies threats or abuse. Nutritional screening: No deficits noted. sr5 Tuberculosis screening: No symptoms or risk factors identified. Fall Risk None identified. Assessment: 22:16 Reassessment: No changes from previously documented assessment. Patient and/or family sr5 updated on plan of care and expected duration. Pain level reassessed. Patient is alert, oriented x 3, equal unlabored respirations, skin warm/dry/pink. Splint in place at discharge. Vital Signs: 20:04 BP 121 / 74; Pulse 93; Resp 17 S; Temp 99.3(O); Pulse Ox 99% on R/A; Weight 58.97 kg jd3 (R); Height 5 ft. 0 in. (152.40 cm) (R); Pain 9/10; 22:16 BP 118 / 72; Pulse 87; Resp 16; Pulse Ox 98% on R/A; Pain 9/10; sr5 20:04 Body Mass Index 25.39 (58.97 kg, 152.40 cm) jd3 ED Course: 19:48 Patient arrived in ED. cl3 20:02 Triage completed. jd3 20:04 Arm band placed on. jd3 20:19 Kailyn Quach [facility]NP-C [facility] snw 20:40 Ildefonso Sibley, RN is Primary Nurse. sr5 20:49 Khang Brooks MD is Attending Physician. fredi 21:03 XRAY Forearm RIGHT In Process Unspecified. EDMS 21:03 XRAY Hand RIGHT 3 View In Process Unspecified. EDMS 22:03 Kong Agustin MD is Referral Physician. snw 22:16 Patient has correct armband on for positive identification. Bed in low position. sr5 22:16 No provider procedures requiring assistance completed. Patient did not have IV access sr5 during this emergency room visit. Velcro wrist splint applied to right wrist. Administered Medications: 21:50 Drug: [place] 5 mg-325 mg 1 tabs {Note: RASS:0.} Route: PO; tr5 22:18 Follow up: Response: No change in condition sr5 21:50 Drug: Valium 2 mg Route: PO; tr5 22:18 Follow up: Response: No change in condition sr5 Outcome: 22:04 Discharge ordered by . snw 22:15 Patient left the ED. sr5 22:16 Discharged to home ambulatory, with family. sr5 22:16 Condition: stable 22:16 Discharge instructions given to patient, family, Instructed on discharge instructions, follow up and referral plans. medication usage, splint Demonstrated understanding of instructions, follow-up care, medications, splint care, Prescriptions given X 1. Signatures: Dispatcher [employer] Khang Lee MD MD cha Therrien, Shelly, TRAINING ANALYST-C TRAINING ANALYST-Csnw Ildefonso Sibley RN RN sr5 August Powell RN RN jd3 Jhon Henson RN RN tr5 Sudha Gutierrez cl3
[2019-04-28 22:19] VITALS: BP 121/74; TEMP 99.3; O2SAT 99
--- NOTE | 2019-04-29 08:45 | RAD REPORT ---
EXAM DESCRIPTION: RAD - Forearm Right - 04/28/2019 8:58 pm CLINICAL HISTORY: Trauma, right forearm pain COMPARISON: None. FINDINGS: No fracture is identified. There is no dislocation or periosteal reaction noted. No foreign body or other soft tissue abnormality. IMPRESSION: Negative right forearm examination.
--- NOTE | 2019-04-29 08:46 | RAD REPORT ---
EXAM DESCRIPTION: RAD - Hand Right 3 View - 04/28/2019 8:59 pm CLINICAL HISTORY: Trauma, right hand pain COMPARISON: June 2017 FINDINGS: No fracture is identified. There is no dislocation or periosteal reaction noted. No forei gn body or other soft tissue abnormality. IMPRESSION: Negative right hand examination.
== END 2019-04-28 22:15 | disposition home or self-care (01) ==
LOC: ER 19:46
DX: S60.221A Contusion of right hand, initial encounter (principal); S50.01XA Contusion of right elbow, initial encounter; W01.198A Fall on same level from slipping, tripping and stumbling with subsequent striking against other object, initial encounter; Y93.89 Activity, other specified; Y92.009 Unspecified place in unspecified non-institutional (private) residence as the place of occurrence of the external cause; E03.9 Hypothyroidism, unspecified; G40.909 Epilepsy, unspecified, not intractable, without status epilepticus; F17.290 Nicotine dependence, other tobacco product, uncomplicated
CPT/HCPCS: 99284

== ENCOUNTER 2019-10-10 22:44 | Emergency (ER) | payer SELFPAY ==
--- OUTSIDE RECORDS SUMMARY | 2019-10-10 22:46 | XMS REPORT | Continuity of Care Document ---
:1990 Author Organization [facility] t Address [address] [place] [address] Care Team Providers Name Role Phone Dilshad ONEILL Attending Clinician Doctor Unassigned, Name Attending Clinician Unavailable Problems This patient has no known problems. Allergies, Adverse Reactions, Alerts This patient has no known allergies or adverse reactions. Medications This patient has no known medications. Procedures This patient has no known procedures. Encounters Start End Encounter Admission Attending Care Care Encounter Source Date/Time Date/Time Type Type Clinicians Facility Department ID 2019-05-10 2019-05-11 Emergency Dilshad [facility] [id number] 22:33:17 00:21:00 Vikas Reyes [id number] [place] [id number] [place] [id number] 2019-05-10 2019-05-10 Orders Doctor JIMENEZ [id number] 00:00:00 00:00:00 Only [employer] garcia [id number] [place] [facility] [id number] Results This patient has no known results.
[2019-10-10] MEDS ORDERED: KETOROLAC 30 MG/ML INJ ONE (23:18)
[2019-10-10 23:28] LABS: Absolute Lymphocytes (CBC) 2.4 K/uL (0.7-4.9); Basophils % 0.2 % (0-1.3); Hematocrit 41.1 % (36.0-45.0); Lymphocytes % 27.5 % (15.3-44.8); MPV 8.1 fL (7.6-11.3); RBC Red Blood Cell Count 4.37 M/uL (3.86-4.86)
[2019-10-10 23:37] LABS: Potassium 3.3 mmol/L (3.5-5.1)
[2019-10-11] MEDS ORDERED: HYDROCODONE/APAP 5/325 MG TAB ONE (00:50)
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
[2019-10-11 01:25] VITALS: BP 138/74; TEMP 98.4; O2SAT 99
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
== END 2019-10-11 01:13 | disposition home or self-care (01) ==
LOC: ER 22:44
DX: S20.222A Contusion of left back wall of thorax, initial encounter (principal); S80.12XA Contusion of left lower leg, initial encounter; S80.11XA Contusion of right lower leg, initial encounter; S50.11XA Contusion of right forearm, initial encounter; V03.90XA Pedestrian on foot injured in collision with car, pick-up truck or van, unspecified whether traffic or nontraffic accident, initial encounter; Z88.1 Allergy status to other antibiotic agents; Z88.2 Allergy status to sulfonamides; E03.9 Hypothyroidism, unspecified; G40.909 Epilepsy, unspecified, not intractable, without status epilepticus
CPT/HCPCS: 36415; 70450; 71250; 72125; 80048; 85025; 86850; 86900; 86901; 96374; 99284

== ENCOUNTER 2020-05-16 11:12 | Emergency (ER) | payer SELFPAY ==
--- OUTSIDE RECORDS SUMMARY | 2020-05-16 11:21 | XMS REPORT | Continuity of Care Document ---
:1990 Author Organization [facility] t Address [address] [place] [address] Care Team Providers Name Role Phone Dilshad [...] Facility Department ID 2019-05-10 2019-05-11 Emergency Dilshad [facility] [id number] 22:33:17 00:21:00 Vikas Reyes [id number] [place] [id number] [place] [id number] 2019-05-10 2019-05-10 Orders Doctor JIMENEZ [id number] 00:00:00 00:00:00 Only [employer] garcia [id number] [place] [facility] [id number] Results This patient has no known results.
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
[2020-05-16 14:17] VITALS: TEMP 97.9
[2020-05-16 14:18] VITALS: BP 116/79; O2SAT 100
== END 2020-05-16 14:08 | disposition home or self-care (01) ==
LOC: ER 11:12
DX: S20.219A Contusion of unspecified front wall of thorax, initial encounter (principal); S50.11XA Contusion of right forearm, initial encounter; S16.1XXA Strain of muscle, fascia and tendon at neck level, initial encounter; Y04.2XXA Assault by strike against or bumped into by another person, initial encounter; Y93.9 Activity, unspecified; Y92.9 Unspecified place or not applicable; Z88.2 Allergy status to sulfonamides; Z88.3 Allergy status to other anti-infective agents; F17.290 Nicotine dependence, other tobacco product, uncomplicated
CPT/HCPCS: 70450; 71045; 72125; 99283

== ENCOUNTER 2020-08-16 15:03 | Emergency (ER) | payer SELFPAY ==
--- OUTSIDE RECORDS SUMMARY | 2020-08-16 15:06 | XMS REPORT | Continuity of Care Document ---
:1990 Author Organization [facility] t Address [address] [place] [address] Care Team Providers Name Role Phone Dilshad [...] Clinicians Facility Department ID 2019-05-10 2019-05-11 Emergency [facility] [id number] 22:33:17 00:21:00 Vikas Reyes [id number] [place] [id number] [place] [id number] 2019-05-10 2019-05-10 Orders Doctor TONY [id number] 00:00:00 00:00:00 Only UnassignedPARK [id number] [facility] [id number] Results This patient has no known results.
[2020-08-16 17:24] LABS: Basophils % 0.7 % (0-1.3); Hematocrit 38.3 % (36.0-45.0); Lymphocytes % 18.4 % (15.3-44.8); MPV 8.6 fL (7.6-11.3); RBC Red Blood Cell Count 4.13 M/uL (3.86-4.86)
[2020-08-16 17:25] LABS: Absolute Lymphocytes (CBC) 0.7 K/uL (0.7-4.9)
--- NOTE | 2020-08-16 17:28 | RAD REPORT ---
EXAM DESCRIPTION: RAD - Chest Single View - 08/16/2020 5:21 pm CLINICAL HISTORY: COUGH Chest pain. COMPARISON: Chest Single View dated 05/16/2020; Chest Single View dated 01/14/2019; Chest Single View dated 07/21/2018; Chest Single View dated 11/24/2015 FINDINGS: Portable technique limits examination quality. The lungs are grossly clear. The heart is normal in size. No displaced fractures. IMPRESSION: No acute intrathoracic process suspected.
[2020-08-16 17:31] LABS: Urine Blood 3+ (Negative); Urine Glucose Negative (Negative); Urine Protein 1+ (Negative); Urine Specific Gravity 1.025 (1.005-1.030)
[2020-08-16 17:40] LABS: Potassium 3.8 mmol/L (3.5-5.1)
[2020-08-16 17:53] LABS: SARS-COV-2 RT PCR POSITIVE (NEGATIVE)
--- NOTE | 2020-08-16 18:02 | ER ---
Nurse's Notes [facility] Name: Heydi Robins Age: 29 yrs Sex: Female : 1990 Arrival Date: 08/16/2020 Time: 15:23 Bed 26 Private MD: Diagnosis: SARS-associated coronavirus as the cause of diseases classified elsewhere;Urinary tract infection, site not specified Presentation: 08/16 15:34 Chief complaint: Patient states: Woke up yesterday with a fever, cough, SOB, sore ca1 throat, headache, muscle pain. Coronavirus screen: Client denies travel out of the [place] in the last 14 days. congestion, cough unrelated to allergies, fever, muscle pain, shortness of breath, sore throat, Client presents with at least one sign or symptom that may indicate coronavirus-19. Standard/surgical mask placed on the client. Provider contacted for isolation considerations. Ebola Screen: Patient negative for fever greater than or equal to 101.5 degrees Fahrenheit, and additional compatible Ebola Virus Disease symptoms Patient denies exposure to infectious person. Patient denies travel to an Ebola-affected area in the 21 days before illness onset. No symptoms or risks identified at this time. Initial Sepsis Screen: Does the patient meet any 2 criteria? No. Patient's initial sepsis screen is negative. Does the patient have a suspected source of infection? No. Patient's initial sepsis screen is negative. Risk Assessment: Do you want to hurt yourself or someone else? Patient reports no desire to harm self or others. Onset of symptoms was August 16, 2020. 15:34 Method Of Arrival: Ambulatory ca1 15:34 Acuity: JOYCELYN 3 ca1 Triage Assessment: 18:12 General: Appears in no apparent distress. Respiratory: Onset: The symptoms/episode zb began/occurred yesterday, the patient has moderate shortness of breath. 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 - Social history:: Smoking status: Reported history of juuling and/or vaping. Screenin:07 Abuse screen: Denies threats or abuse. Denies injuries from another. Nutritional zb screening: No deficits noted. Tuberculosis screening: No symptoms or risk factors identified. Fall Risk None identified. Assessment: 16:55 General: Appears in no apparent distress. uncomfortable, Behavior is calm, cooperative, zb appropriate for age, Reports fever for 12-24 hours, feeling ill for 12-24 hours, fatigue for 12-24 hours. Pain: Complains of pain in forehead, base of the skull and back of neck Pain does not radiate. Pain currently is 10 out of 10 on a pain scale. Neuro: Level of Consciousness is awake, alert, obeys commands, Oriented to person, place, time, situation. Cardiovascular: Reports shortness of breath, Denies chest pain, Capillary refill < 3 seconds Patient's skin is warm and dry. Rhythm is regular. Respiratory: Reports shortness of breath at rest cough that is pain with cough Airway is patent Respiratory effort is even, unlabored, Respiratory pattern is regular, symmetrical. GI: Abdomen is round. Derm: Skin is intact, is healthy with good turgor, Skin is dry, Skin is normal. Musculoskeletal: Circulation, motion, and sensation intact. Range of motion: intact in all extremities. 17:52 Reassessment: Patient appears in no apparent distress at this time. Patient and/or zb family updated on plan of care and expected duration. Pain level reassessed. Patient is alert, oriented x 3, equal unlabored respirations, skin warm/dry/pink. pt awaiting result. warm blanket given. 17:54 Reassessment: ecp at bedside. zb 18:11 Reassessment: Patient appears in no apparent distress at this time. Patient and/or zb family updated on plan of care and expected duration. Pain level reassessed. Patient is alert, oriented x 3, equal unlabored respirations, skin warm/dry/pink. ecp at bedside. discussed issues d/c instructions given. gait stable and even. 18:11 Respiratory: Breath sounds are clear. zb Vital Signs: 15:34 BP 111 / 95; Pulse 103; Resp 18; Temp 99.8(O); Pulse Ox 97% on R/A; Weight 68.04 kg ca1 (R); Height 5 ft. 1 in. (154.94 cm) (M); Pain 10/10; 15:34 Body Mass Index 28.34 (68.04 kg, 154.94 cm) ca1 ED Course: 15:23 Patient arrived in ED. am2 15:37 Triage completed. ca1 15:38 Arm band placed on right wrist. ca1 15:46 Strep Sent. ca1 16:19 Leah Salgado, RN is Primary Nurse. zb 16:22 Familia Brar PA is PHCP. jr8 16:22 Phil Ashley MD is Attending Physician. jr8 17:21 XRAY CXR (1 view) In Process Unspecified. EDMS 17:53 Patient has correct armband on for positive identification. Bed in low position. Call zb light in reach. Side rails up X 1. Pulse ox on. NIBP on. Door closed. Noise minimized. Warm blanket given. 18:12 No provider procedures requiring assistance completed. IV discontinued, intact, zb bleeding controlled, No redness/swelling at site. Pressure dressing applied. Administered Medications: No medications were administered Outcome: 18:01 Discharge ordered by . jr8 18:12 Discharged to home ambulatory. zb 18:12 Condition: stable 18:12 Condition: stable 18:12 Discharge instructions given to patient, Instructed on discharge instructions, follow up and referral plans. medication usage, Demonstrated understanding of instructions, follow-up care, medications, Prescriptions given X 1. 18:17 Patient left the ED. zb Addendum: 08/18/2020 07:17 Addendum: Culture Results: Positive urine culture. No further action required. Bacteria e b sensitive to prescribed antibiotic. Signatures: Dispatcher [employer] EDMS Familia Brar PA PA jr8 Susy Renner am2 Allison Paez Cheryl, RN RN ca1 Leah Salgado RN RN zb Corrections: (The following items were deleted from the chart) 08/16 16:23 15:46 CORONAVIRUS+MR.LAB.BRZ drawn and sent. ca1 EDMS 16:23 15:46 Influenza Screen (A \T\ B)+BA.LAB.BRZ drawn and sent. ca1 EDMS
--- NOTE | 2020-08-16 18:03 | EDPHYS ---
Physician Documentation [facility] Name: Heydi Robins Age: 29 yrs Sex: Female : 1990 Arrival Date: 08/16/2020 Time: 15:23 Bed 26 Private MD: ED Physician Phil Ashley HPI: 08/16 16:49 This 29 yrs old Female presents to ER via Ambulatory with complaints of jr8 Fever, Shortness Of Breath, Decreased Appetite. 16:49 Patient reports waking up yesterday morning with sweats and chills. Her condition has jr8 progressively worsened to generalized body aches, fever, sore throat, and cough. . 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 - Social history:: Smoking status: Reported history of juuling and/or vaping. ROS: 16:54 Cardiovascular: Negative for chest pain, palpitations, and edema, Abdomen/GI: Negative jr8 for abdominal pain, nausea, vomiting, diarrhea, and constipation, Neuro: Negative for headache, weakness, numbness, tingling, and seizure. 16:54 ENT: Positive for sinus congestion, sinus pain, sore throat. 16:54 Respiratory: Positive for cough, with no reported sputum, shortness of breath, at rest. 16:54 MS/extremity: Positive for generalized body aches. Exam: 16:55 Chest/axilla: Normal chest wall appearance and motion. Nontender with no deformity. jr8 No lesions are appreciated. Cardiovascular: Regular rate and rhythm with a normal S1 and S2. No gallops, murmurs, or rubs. Normal PMI, no JVD. No pulse deficits. Abdomen/GI: Soft, non-tender, with normal bowel sounds. No distension or tympany. No guarding or rebound. No evidence of tenderness throughout. MS/ Extremity: Pulses equal, no cyanosis. Neurovascular intact. Full, normal range of motion. Neuro: Awake and alert, GCS 15, oriented to person, place, time, and situation. Cranial nerves II-XII grossly intact. Motor strength 5/5 in all extremities. Sensory grossly intact. Cerebellar exam normal. Normal gait. 16:55 Head/face: Sinus tenderness, that is marked, is located over the right frontal sinus, left frontal sinus, right maxillary sinus and left maxillary sinus. 16:55 Cardiovascular: Rate: tachycardic, actual rate is 120 bpm, Rhythm: regular, Pulses: Heart sounds: normal. 16:55 Respiratory: the patient does not display signs of respiratory distress, Respirations: normal, Breath sounds: are clear throughout, Respiratory rate: 22 Vital Signs: 15:34 BP 111 / 95; Pulse 103; Resp 18; Temp 99.8(O); Pulse Ox 97% on R/A; Weight 68.04 kg ca1 (R); Height 5 ft. 1 in. (154.94 cm) (M); Pain 10/10; 15:34 Body Mass Index 28.34 (68.04 kg, 154.94 cm) ca1 MDM: 16:23 Patient medically screened. jr8 17:59 Data reviewed: vital signs, nurses notes, lab test result(s), radiologic studies, plain jr8 films. Data interpreted: Pulse oximetry: on room air is 97 %. Interpretation: normal. Counseling: I had a detailed discussion with the patient and/or guardian regarding: the historical points, exam findings, and any diagnostic results supporting the discharge/admit diagnosis, lab results, radiology results, the need for outpatient follow up, a family practitioner, to return to the emergency department if symptoms worsen or persist or if there are any questions or concerns that arise at home. 08/16 15:40 Order name: Strep; Complete Time: 16:53 ca1 08/16 16:47 Order name: Throat Culture [facility]RI 08/16 16:53 Order name: COVID-19 : Document "Date of Symptom Onset" if Symptomatic. jr8 08/16 16:53 Order name: CBC with Diff 8 08/16 16:53 Order name: Basic Metabolic Panel; Complete Time: 17:43 jr8 08/16 16:53 Order name: Urine Microscopic Only 8 08/16 16:53 Order name: Urine Dipstick-Ancillary (obtain specimen); Complete Time: 17:33 [facility] 08/16 16:54 Order name: XRAY CXR (1 view); Complete Time: 17:30 [facility] 08/16 17:31 Order name: Urine Dipstick-Ancillary; Complete Time: 17:33 [facility] 08/16 17:34 Order name: Urine --Ancillary (enter results) pa 08/16 17:34 Order name: Urine --Ancillary [facility] 08/16 17:53 Order name: COVID-19/FLU A+B; Complete Time: 17:59 EDRI Administered Medications: No medications were administered Disposition: 18:24 Co-signature as Attending Physician, Phil Ashley MD. rn Disposition: 08/16/20 18:01 Discharged to Home. Impression: SARS-associated coronavirus as the cause of diseases classified elsewhere, Urinary tract infection, site not specified. - Condition is Stable. - Discharge Instructions: Urinary Tract Infection, Adult, COVID-19. - Prescriptions for Macrobid 100 mg Oral Capsule - take 1 capsule by ORAL route every 12 hours for 7 days; 14 capsule. - Medication Reconciliation Form, Thank You Letter, Antibiotic Education, Prescription Opioid Use, Work release form form. - Follow up: Private Physician; When: 1 week; Reason: Recheck today's complaints, Continuance of care, Re-evaluation by your physician. - Problem is new. - Symptoms have improved. - Notes: Vitamin C 1,000 mg 3x a day Vitamin D 4,000 IU once a day Zinc 100 mg once a day Melatonin 10 mg every night Aspirin 81 mg daily Signatures: Dispatcher [employer] [facility] Phil Ashley MD MD rn Roszak, Josh, PA PA jr8 Elena Angulo RN RN ca1 Brown, Zipporah, RN RN zb Corrections: (The following items were deleted from the chart) 16:23 15:41 Influenza Screen (A \\T\\ B)+BA.LAB.BRZ ordered. [facility] EDRI 16:23 15:41 CORONAVIRUS+MR.LAB.BRZ ordered. [facility] 18:17 18:01 08/16/2020 18:01 Discharged to Home. Impression: SARS-associated coronavirus as zb the cause of diseases classified elsewhere; Urinary tract infection, site not specified. Condition is Stable. Forms are Medication Reconciliation Form, Thank You Letter, Antibiotic Education, Prescription Opioid Use. Follow up: Private Physician; When: 1 week; Reason: Recheck today's complaints, Continuance of care, Re-evaluation by your physician. Problem is new. Symptoms have improved. jr8
[2020-08-16 18:27] VITALS: BP 111/95; TEMP 99.8; O2SAT 97
[2020-08-16 18:46] LABS: Urine Specific Gravity/Preg 1.025 (1.005-1.030)
[2020-08-16 18:50] LABS: Urine Bacteria >50 /HPF (<20)
[2020-08-16 18:51] LABS: Urine Mucus 3+ /HPF (NONE SEEN)
[2020-08-16 20:51] LABS: Blood Morphology Comment NOT SEEN (NOT SEEN); Platelet Estimate ADEQ; White Blood Cell Scan OK (OK)
== END 2020-08-16 18:17 | disposition home or self-care (01) ==
LOC: ER 15:03
DX: U07.1 COVID-19 (principal); N39.0 Urinary tract infection, site not specified; E03.9 Hypothyroidism, unspecified; G40.909 Epilepsy, unspecified, not intractable, without status epilepticus; Z88.2 Allergy status to sulfonamides; Z88.3 Allergy status to other anti-infective agents
CPT/HCPCS: 0240U; 36415; 71045; 80048; 81003; 81015; 81025; 85025; 87070; 87077; 87081; 87086; 87088; 87186; 99284

== ENCOUNTER 2021-08-11 23:21 | Emergency (ER) | payer SELFPAY ==
--- OUTSIDE RECORDS SUMMARY | 2021-08-11 23:24 | XMS REPORT | Continuity of Care Document ---
:[address] [facility] t Address [address] [place] [address] Care Team Providers Name Role Phone Ivana FARLEY Primary Care Physician Unavailable Ivana FARLEY Attending Clinician Unavailable Ivana Wisdom Attending Clinician Jorge BEAULIEU Attending Clinician Unavailable MAGNUS Attending Clinician Unavailable DILSHAD Attending Clinician Unavailable Dilshad ONEILL Attending Clinician Doctor Unassigned, Name Attending Clinician Unavailable Payers Payer Name Policy Type Policy Number Effective Date Expiration Date Manuel vega [id number] 2020 00:00:00 MEDICAID PENDING PENDING 2019 2019 00:00:00 00:00:00 Advance Directives Directive Decision Effective Termination Comments Source Date Date Healthcare Agents on N/A [facility] Agent Medical RelationshipCommunicationRaNorthwest [facility] HospitalHealth Care [phone] (Mobile) Problems Condition Condition Condition Status Onset Resolution Last Treating Co mments Source Name Details Category Date Date Treatment Clinician Date Other Other Disease Active Univers general general - it[place] of [place] advice 00 Me dical for for Branch contracept contracept sowmya sowmya management management History of History of Disease Active U nivers tubal tubal 01-24 ity of ligation ligation 00:00: [place] [address] Medical Branch Vaginal Vaginal Disease Active Univers odor odor 9-30 ity of 00:00: [place] 00 Medical Branch Heavy Heavy Disease Active Univers menses menses 9-30 ity of 00:00: Medical Branch Abscess Abscess Disease Active 2016-04 Univers 0-24 ity of 00:00: 00 Medical Branch Obesity Obesity Disease Active 2016-04 Univers (BMI (BMI 0-24 ity of 30-39.9) 30-39.9) 00:00: [place] 00 Medical Branch Allergies, Adverse Reactions, Alerts Allergy Allergy Status Severity Reaction(s) Onset Inactive Treating Comm ents Source Name Type Date Date Clinician SULFA Drug Active Unknown-Cmnt 2016-04 Univ ers (SULFONA Class 0-24 ity of MIDE 00:00: [place] ANTIBIOT 00 Medical ICS) Branch VANCOMYC DRUG Active ITCHING 2016-04 Univers IN INGREDI 0-24 ity of 00:00: [place] [facility] Sulfa Propensi Active Unknown - 2016-04 Patient Univ ers (Sulfona ty to See comments 0-24 unsure it y of mide adverse 00:00: [place] Antibiot reaction 00 Medica l ics) s Branch Vancomyc Propensi Active Itching 2016-04 Unive rs in ty to 0-24 ity of adverse 00:00: [place] reaction 00 Medical s Branch Social History Social Habit Start Date Stop Date Quantity Comments Source Exposure to Not sure [facility] SARS-CoV-2 [place] [facility] (event) Branch Tobacco use and 2021-01-24 2021-01-24 Current user Univers ity of exposure 00:00:00 00:00:00 [facility] Alcohol intake 2021-01-24 2021-01-24 Ex-drinker University 00:00:00 00:00:00 (finding) [facility] Tobacco Comment 2021-01-24 2021-01-24 started 2014 Univers ity of 00:00:00 00:00:00 [facility] Sex Ass[birth year] At [birth year] Universit y of 00:00:00 00:00:00 [facility] Smoking Status Start Date Stop Date Source Never smoker [facility] Medications Ordered Filled Start Stop Current Ordering Indication Dosage Frequency Signature Comments Components Source Medication Medication Date Date Medication? Clinician (SIG) Name Name metroNIDAZO 2020-04 Yes [id number] 500mg Take 1 Univers LE 500 mg 0-01 tablet by ity o f tablet 00:00: mouth 2 00 (two) Medical times Branch daily. metroNIDAZO 2020-04 Yes [id number] 500mg Take 1 Univers LE 500 mg 0-01 tablet by ity o f tablet 00:00: mouth 2 (two) Medical times Branch daily. metroNIDAZO 2020-04 Yes [id number] 500mg Take 1 Univers LE 500 mg 0-01 tablet by ity o f tablet 00:00: mouth 2 00 (two) Medical times Branch daily. phentermine Yes 37.5mg Take 37.5 Univers 37.5 mg 9-30 mg by ity of capsule 10:28: mouth [place] 09 every Medical morning. Branch phentermine Yes 37.5mg Take 37.5 Univers 37.5 mg 9-30 mg by ity of capsule 10:28: mouth [place] 09 every Medical morning. Branch phentermine Yes 37.5mg Take 37.5 Univers 37.5 mg 9-30 mg by ity of capsule 10:28: mouth [place] 09 every Medical morning. Branch topiramate Yes 50mg Take 50 mg U nivers (TOPAMAX) 9-30 by mouth 2 ity of 50 mg 10:27: (two) [place] tablet 39 times Medical daily. Branch topiramate 0 Yes 50mg Take 50 mg U nivers (TOPAMAX) 9-30 by mouth 2 ity of 50 mg 10:27: (two) [place] tablet 39 times Medical daily. Branch topiramate 0 Yes 50mg Take 50 mg U nivers (TOPAMAX) 9-30 by mouth 2 ity of 50 mg 10:27: (two) [place] tablet 39 times Medical daily. Branch levothyroxi 0 Yes 75ug Take 75 Uni vers ne 75 mcg 9-30 mcg by ity of tablet 10:27: mouth [place] 20 every Medical morning. Branch levETIRAcet 2020-0 Yes 500mg Take 500 U nivers am (KEPPRA) 9-30 mg by ity of 500 mg 10:27: mouth [place] tablet 20 daily. Medical Branch levothyroxi 2020-0 Yes 75ug Take 75 Uni vers ne 75 mcg 9-30 mcg by ity of tablet 10:27: mouth [place] 20 every Medical morning. Branch levETIRAcet Yes 500mg Take 500 U nivers am (KEPPRA) 9-30 mg by ity of 500 mg 10:27: mouth [place] tablet 20 daily. [facility] levothyroxi Yes 75ug Take 75 Uni vers ne 75 mcg 9-30 mcg by ity of tablet 10:27: mouth [place] 20 every Medical morning. Branch levETIRAcet Yes 500mg Take 500 U nivers am (KEPPRA) 9-30 mg by ity of 500 mg 10:27: mouth [place] tablet 20 daily. [facility] norethindro Yes [id number] 1{tbl} Take 1 Univers ne 0.35 mg 9-30 tablet by ity of tablet 00:00: mouth [place] 00 daily. [facility] norethindro Yes [id number] 1{tbl} Take 1 Univers ne 0.35 mg 9-30 tablet by ity of tablet 00:00: mouth [place] 00 daily. [facility] norethindro Yes [id number] 1{tbl} Take 1 Univers ne 0.35 mg 9-30 tablet by ity of tablet 00:00: mouth [place] 00 daily. [facility] Procedures This patient has no known procedures. 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 [id number] ity of [facility] [id number] [place]hoa as MATERNAL [phone] Med ical & CHILD [address] [place] [address] 2021-05-21 2021-05-21 Outpatient R AKINSIPE, [facility] [id number] Univers 08:15:00 08:15:00 IVANIA [id number] ity o [facility] 2021-05-21 2021-05-21 Outpatient R AKINSIPE, [facility] [id number] Univers 08:15:00 08:15:00 IVANIA ity o [facility] 2021-05-16 2021-05-16 Outpatient R AKINSIPE, [facility] [id number] Univers 15:15:00 15:15:00 IVANIA [id number] ity o [facility] 2021-05-16 2021-05-16 Outpatient R AKINSIPE, [facility] [id number] Univers 15:15:00 15:15:00 IVANIA [facility] o [facility] 2021-05-07 2021-05-07 Outpatient R [facility] [id number] Univers 11:00:00 11:00:00 [id number] [facility] 2021-05-07 2021-05-07 Telephone Akinsipe, [facility] [id number] Univers 00:00:00 00:00:00 Ivania Heath JIG INSPECTOR [id number] [facility] [id number] [place] MATERNAL [id number] Med ical & CHILD [address] [place] [address] 2021-04-29 2021-04-29 Outpatient R AKINSIPE, [facility] [id number] Univers 09:30:00 09:30:00 IVANIA [id number] ity o [facility] 2021-04-29 2021-04-29 Outpatient R AKINSIPE, [facility] [id number] Univers 09:30:00 09:30:00 IVANIA ity [facility] 2021-04-29 2021-04-29 Outpatient R AKINSIPE, [facility] [id number] Univers 09:30:00 09:30:00 IVANIA ity o [facility] 2021-04-04 2021-04-04 Outpatient R [facility] [id number] Univers 13:00:00 13:00:00 [id number] [facility] 2021-04-04 2021-04-04 Outpatient R [facility] [id number] Univers 13:00:00 13:00:00 [facility] 2021-03-20 2021-03-20 [facility] [id number] Univers 09:45:00 09:45:00 THIAGO [facility] 2021-01-25 2021-01-25 [facility] [id number] Univers 00:00:00 00:00:00 Ivania Heath JIG INSPECTOR [id number] [place] [id number] Khoa as MATERNAL [id number] Med ical & CHILD [address] [place] [address] 2021-01-24 2021-01-24 [facility] [id number] Univers 10:00:00 10:00:00 IVANIA [id number] raúl o pamela [facility] 2021-01-24 2021-01-24 [facility] [id number] Univers 10:00:00 10:00:00 IVANIA santiago [facility] 2020-10-23 2020-10-23 Emergency MARLEY AGUDELO [facility] [id number] [place] 00:00:00 00:00:[id number] 2019-05-10 2019-05-11 Emergency [facility] [id number] Univers 22:33:17 00:21:00 TYRA [facility] 2019-05-10 2019-05-11 Emergency [facility] [id number] 22:33:17 00:21:00 Tyra Reyes [id number] Joanne [id number] [place] [id number] 2019-05-10 2019-05-10 Orders Doctor TONY [id number] 00:00:00 00:00:00 Only Unassigned, [place] [id number] [place] [facility] [id number] Results Test Description Test Time Test Comments Results Result Comments Source CT/NG, NAAT, URINE 2021-06-19 18:46:10 Test Item Value Reference Range Interpretation Comme nts GONORRHEA, NAAT NEGATIVE NEGATIVE IMPORTANT NOTICE: SEE ANNOUNCEMENT (test code = [place] [address]) [email or web address] Note: Assay methodolo gy is nucleic acid amplification by transcriptio n mediated amplification (TMA) utilizing the Aptima Combo 2 Assay. CHLAMYDIA, NAAT NEGATIVE NEGATIVE IMPORTANT NOTICE: SEE ANNOUNCEMENT (test code = [place] [address]) [email or web address] Note: Assay methodolo gy is nucleic acid amplification by transcriptio n mediated amplification (TMA) utilizing the Aptima Combo 2 Assay. VAGINAL PATHOGENS DNA [id number] 15:06:01 Test Item Value Reference Range Interpretation Comments TOBY SPECIES (test NEGATIVE NEGATIVE code = 93222) G. VAGINALIS (test POSITIVE NEGATIVE A code = 09358) T. VAGINALIS (test POSITIVE NEGATIVE A UN LESS OTHERWISE code = 75454) INDICATED, ALL TESTING PERFORMED [facility] [address] [place] [address], [place] [address] 4 LABORATORY DIR KATY: Dirk CASTANEDA NUMBER [id number] CAP ACCREDITATION N O. [id number]
[2021-08-12] MEDS ORDERED: MORPHINE 4 MG/ML SYR ONE (00:16)
[2021-08-12] MEDS ORDERED: ONDANSETRON 4 MG/2 ML VIAL ONE (00:16)
[2021-08-12] MEDS ORDERED: NA CHLORIDE 0.9% 1,000 ML ONE (00:16)
[2021-08-12 00:22] LABS: Absolute Lymphocytes (CBC) 2.4 K/uL (0.7-4.9); Hematocrit 40.2 % (36.0-45.0); Lymphocytes % 27.6 % (15.3-44.8); MPV 7.8 fL (7.6-11.3); RBC Red Blood Cell Count 4.45 M/uL (3.86-4.86)
[2021-08-12 00:28] LABS: Urine Blood Trace-intact (Negative); Urine Glucose Negative (Negative); Urine Protein Negative (Negative); Urine Specific Gravity >=1.030 (1.005-1.030)
[2021-08-12 00:48] LABS: Albumin 3.9 g/dL (3.4-5.0); Bilirubin Total 0.3 mg/dL (0.2-1.0); Potassium 3.5 mmol/L (3.5-5.1); Protein, Total 7.9 g/dL (6.4-8.2)
[2021-08-12 01:10] LABS: Urine Bacteria <20 /HPF (<20); Urine Mucus SLIGHT /HPF (NONE SEEN); Urine RBC <5 /HPF (NONE SEEN)
[2021-08-12] MEDS ORDERED: MEPERIDINE HCL 50 MG/ML ONE ×2 (01:23→02:56)
--- NOTE | 2021-08-12 03:01 | ER ---
Nurse's Notes [facility] Name: Heydi Robins Age: 30 yrs Sex: Female : 1990 Arrival Date: 08/11/2021 Time: 23:26 Bed 10 Private MD: Diagnosis: Infectious gastroenteritis and colitis, unspecified;Nausea with vomiting, unspecified Presentation: 08/11 23:47 Chief complaint: Patient states: "I'm having really bad abdominal and back pain". as6 Coronavirus screen: At this time, the client does not indicate any symptoms associated with coronavirus-19. Ebola Screen: No symptoms or risks identified at this time. Initial Sepsis Screen: Does the patient meet any 2 criteria? HR > 90 bpm. Does the patient have a suspected source of infection? No. Patient's initial sepsis screen is negative. Risk Assessment: Do you want to hurt yourself or someone else? Patient reports no desire to harm self or others. Onset of symptoms was August 11, 2021. 23:47 Method Of Arrival: Ambulatory as6 23:47 Acuity: JOYCELYN 3 as6 Triage Assessment: 23:51 General: Appears uncomfortable, Behavior is cooperative, restless. Pain: Complains of as6 pain in right upper quadrant Pain radiates to back. GI: Reports upper abdominal pain, nausea, vomiting. 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 - Social history:: Smoking status: Reported history of juuling and/or vaping. - Family history:: not pertinent. - Hospitalizations: : No recent hospitalization is reported. Screenin/18 00:31 Abuse screen: Denies threats or abuse. Nutritional screening: No deficits noted. jb4 Tuberculosis screening: No symptoms or risk factors identified. Fall Risk None identified. Assessment: 00:31 General: Appears in no apparent distress. uncomfortable. Pain: Complains of pain in jb4 abdomen Pain does not radiate. Pain currently is 10 out of 10 on a pain scale. Neuro: Level of Consciousness is awake, alert, obeys commands, Oriented to person, place, time, situation. Cardiovascular: Patient's skin is warm and dry. Respiratory: Airway is patent Respiratory effort is even, unlabored, Respiratory pattern is regular, symmetrical. GI: No signs and/or symptoms were reported involving the gastrointestinal system. : No signs and/or symptoms were reported regarding the genitourinary system. EENT: No signs and/or symptoms were reported regarding the EENT system. Derm: Skin is intact, Skin is pink, warm \\T\\ dry. Musculoskeletal: Circulation, motion, and sensation intact. Range of motion:. 01:22 GI: Reports cramping. tw5 Vital Signs: 08/11 23:47 BP 184 / 99; Pulse 103; Resp 20 S; Temp 98.3(O); Pulse Ox 100% on R/A; Weight 70.31 kg as6 (R); Height 5 ft. (152.40 cm) (R); Pain 10/10; 08/12 01:22 BP 117 / 95; Pulse 100; Resp 20; Pulse Ox 100% on R/A; tw5 03:02 BP 119 / 79; Pulse 68; Resp 16; Pulse Ox 95% on R/A; jb4 08/11 23:47 Body Mass Index 30.27 (70.31 kg, 152.40 cm) as6 ED Course: 08/11 23:26 Patient arrived in ED. bp1 23:45 Phil Ashley MD is Attending Physician. rn 23:49 Triage completed. as6 23:51 Arm band placed on. as6 23:58 Bobby Godoy, JESSA is Primary Nurse. jb4 08/12 00:00 Initial lab(s) drawn, by me, sent to lab. Inserted saline lock: 18 gauge in right jb4 antecubital area, using aseptic technique. Blood collected. 00:31 Patient has correct armband on for positive identification. Placed in gown. Bed in low jb4 position. Call light in reach. Side rails up X 1. Pulse ox on. NIBP on. 01:41 CT Abd/Pelvis - IV Contrast Only In Process Unspecified. EDMS 03:16 No provider procedures requiring assistance completed. IV discontinued, intact, jb4 bleeding controlled, No redness/swelling at site. Pressure dressing applied. Administered Medications: 00:00 Drug: Zofran (Ondansetron) 4 mg Route: IVP; Site: right antecubital; jb4 01:22 Follow up: Response: No adverse reaction tw5 00:00 Drug: morphine 4 mg Route: IVP; Site: right antecubital; jb4 01:22 Follow up: Response: No adverse reaction; Pain is unchanged, physician notified; RASS: tw5 Restless (+1) 00:00 Drug: NS 0.9% 1000 ml Route: IV; Rate: 1000 ml; Site: right antecubital; jb4 01:00 Follow up: Response: No adverse reaction; IV Status: Completed infusion jb4 01:22 Drug: Demerol (meperidine) 50 mg Route: IVP; Site: right antecubital; jh6 01:45 Follow up: Response: No adverse reaction; Marked relief of symptoms jb4 02:55 Drug: Demerol (meperidine) 50 mg Route: IVP; Site: right antecubital; jb4 03:16 Follow up: Response: No adverse reaction; Marked relief of symptoms; Pain is decreased jb4 Outcome: 03:00 Discharge ordered by . jessa 03:16 Discharged to home ambulatory. jb4 03:16 Condition: stable 03:16 Discharge instructions given to patient, Instructed on discharge instructions, follow up and referral plans. no drinking with medication, no driving heavy equipment, medication usage, Demonstrated understanding of instructions, follow-up care, medications, Prescriptions given X 2. 03:17 Patient left the ED. jb4 Signatures: Dispatcher [employer] EDPhil Sánchez MD MD rn Bryson, James, RN RN jb4 Lorene Vela Tiffany tw5 Gerber Doll RN RN as6 Clarita Montanez RN RN jh6
--- NOTE | 2021-08-12 03:01 | EDPHYS ---
Physician Documentation [facility] Name: Heydi Robins Age: 30 yrs Sex: Female : 1990 Arrival Date: 08/11/2021 Time: 23:26 Bed 10 Private MD: ED Physician Phil Ashley HPI: 08/11 23:50 This 30 yrs old Female presents to ER via Ambulatory with complaints of abd pain. rn 23:51 This 30 yrs old Female presents to ER via Ambulatory with complaints of Abdominal pain. rn 23:52 The patient presents with abdominal pain in the epigastric area, in the right upper rn quadrant. Onset: The symptoms/episode began/occurred just prior to arrival. The symptoms radiate to Associated signs and symptoms: Pertinent positives: nausea and vomiting, Pertinent negatives: anorexia, blood in stools, chest pain, constipation, diarrhea, dysuria, fever, shortness of breath, vaginal discharge, vomiting blood. The symptoms are described as sharp. Modifying factors: The symptoms are alleviated by nothing, the symptoms are aggravated by food, touching the area. Severity of pain: At its worst the pain was moderate in the emergency department the pain is unchanged. The patient has not experienced similar symptoms in the past. The patient has not recently seen a physician. Patient reports upper abdominal pain that began prior to arrival, associated with nausea and vomiting. No fever. No diarrhea. No sick contacts. States has had tubal ligation. Denies similar abdominal pain in the past.. [employer]: 23:51 LMP 07/11/2021 as6 Historical: - Allergies: 23:49 Sulfa (Sulfonamide Antibiotics); as6 23:49 Vancomycin; as6 - Home Meds: 23:49 Keppra Oral [Active]; Topamax Oral [Active]; as6 - PMHx: 23:49 Hypothyroidism; Migraines; Seizures; as6 - PSHx: 23:49 Ligation of fallopian tube; Appendectomy; as6 - Immunization history:: Client reports having NOT received the Covid vaccine. - Social history:: Smoking status: Reported history of juuling and/or vaping. - Family history:: not pertinent. - Hospitalizations: : No recent hospitalization is reported. ROS: 23:52 Constitutional: Negative for fever, chills, and weight loss, Eyes: Negative for injury, rn pain, redness, and discharge, Neck: Negative for injury, pain, and swelling, Cardiovascular: Negative for chest pain, palpitations, and edema, Respiratory: Negative for shortness of breath, cough, wheezing, and pleuritic chest pain, Abdomen/GI: Today for abdominal pain and nausea/vomiting Back: Negative for injury and pain, : Negative for injury, bleeding, discharge, and swelling, MS/Extremity: Negative for injury and deformity, Skin: Negative for injury, rash, and discoloration, Neuro: Negative for headache, weakness, numbness, tingling, and seizure. Exam: 23:52 Constitutional: This is a well developed, well nourished patient who is awake, alert, rn appears uncomfortable Head/Face: Normocephalic, atraumatic. Eyes: Periorbital areas with no swelling, redness, or edema. Cardiovascular: Tachycardic, regular. Respiratory: Mild tachypnea Abdomen/GI: Soft, tender in epigastric and right upper quadrant with guarding Skin: Warm, dry MS/ Extremity: Pulses equal, no cyanosis. Neuro: Awake and alert, GCS 15 Vital Signs: 23:47 BP 184 / 99; Pulse 103; Resp 20 S; Temp 98.3(O); Pulse Ox 100% on R/A; Weight 70.31 kg as6 (R); Height 5 ft. (152.40 cm) (R); Pain 10/10; 08/12 01:22 BP 117 / 95; Pulse 100; Resp 20; Pulse Ox 100% on R/A; tw5 03:02 BP 119 / 79; Pulse 68; Resp 16; Pulse Ox 95% on R/A; jb4 08/11 23:47 Body Mass Index 30.27 (70.31 kg, 152.40 cm) as6 MDM: 00:02 Patient medically screened. rn 02:57 Differential diagnosis: cholecystitis, Cholelithiasis, diverticulitis, gastritis, rn gastroesophageal reflux disease, non-specific abd pain, pancreatitis, Peptic Ulcer Disease, Ureterolithiasis. Data reviewed: vital signs, nurses notes, lab test result(s), radiologic studies, CT scan, and as a result, I will discharge patient. Counseling: I had a detailed discussion with the patient and/or guardian regarding: the historical points, exam findings, and any diagnostic results supporting the discharge/admit diagnosis, lab results, radiology results, the need for outpatient follow up, to return to the emergency department if symptoms worsen or persist or if there are any questions or concerns that arise at home. Response to treatment: the patient's symptoms have markedly improved after treatment, and as a result, I will discharge patient. Special discussion: Based on the patient's Hx, exam, and Dx evaluation, there is no indication for emergent surgery or inpatient Tx. It is understood by the patient/guardian that if the Sx's persist or worsen they need to return immediately for re-evaluation. I discussed with the patient/guardian in detail that at this point there is no indication for admission to the hospital. It is understood, however, that if the symptoms persist or worsen the patient needs to return immediately for re-evaluation. ED course: Pt feels better, talking on phone, states some of pain returning and would like more pain medication. CT shows nonspecific findings of small bowel indicative of enteritis or mild localized ileus. Most likely viral syndrome, labs unremarkable. Will dc home with prn zofran and pain medication with return precautions.. 08/11 23:50 Order name: CBC with Diff; Complete Time: 00:52 rn 08/11 23:50 Order name: CMP; Complete Time: 00:52 rn 08/11 23:50 Order name: Lipase; Complete Time: 00:52 rn 08/11 23:50 Order name: Urine Microscopic Only; Complete Time: 01:27 rn 08/11 23:50 Order name: CT Abd/Pelvis - IV Contrast Only rn 08/12 00:28 Order name: Urine Dipstick-Ancillary; Complete Time: 00:52 EDMS 08/11 23:50 Order name: IV Saline Lock; Complete Time: 00:09 rn 08/11 23:50 Order name: Labs collected and sent; Complete Time: 00:09 rn 08/11 23:50 Order name: Urine Dipstick-Ancillary (obtain specimen); Complete Time: 00:30 rn Administered Medications: 00:00 Drug: Zofran (Ondansetron) 4 mg Route: IVP; Site: right antecubital; jb4 01:22 Follow up: Response: No adverse reaction tw5 00:00 Drug: morphine 4 mg Route: IVP; Site: right antecubital; jb4 01:22 Follow up: Response: No adverse reaction; Pain is unchanged, physician notified; RASS: tw5 Restless (+1) 00:00 Drug: NS 0.9% 1000 ml Route: IV; Rate: 1000 ml; Site: right antecubital; jb4 01:00 Follow up: Response: No adverse reaction; IV Status: Completed infusion jb4 01:22 Drug: Demerol (meperidine) 50 mg Route: IVP; Site: right antecubital; jh6 01:45 Follow up: Response: No adverse reaction; Marked relief of symptoms jb4 02:55 Drug: Demerol (meperidine) 50 mg Route: IVP; Site: right antecubital; jb4 03:16 Follow up: Response: No adverse reaction; Marked relief of symptoms; Pain is decreased jb4 Disposition Summary: 08/12/21 03:00 Discharge Ordered Location: Home rn Problem: new rn Symptoms: have improved rn Condition: Stable rn Diagnosis - Infectious gastroenteritis and colitis, unspecified rn - Nausea with vomiting, unspecified rn Followup: rn - With: Private Physician - When: As needed - Reason: Recheck today's complaints, Re-evaluation by your physician Discharge Instructions: - Discharge Summary Sheet rn - Nausea and Vomiting, Adult rn - Viral Gastroenteritis, Adult rn Forms: - Medication Reconciliation Form rn - Thank You Letter rn - Antibiotic magazine journalist - Prescription Opioid Use rn Prescriptions: - ondansetron 4 mg Oral tablet,disintegrating - take 1 tablet by ORAL route every 6-8 hours As needed; 10 tablet; Refills: 0, rn Product Selection Permitted - Tramadol 50 mg Oral Tablet - take 1 tablet by ORAL route every 8 hours as needed; 12 tablet; Refills: 0, rn Product Selection Permitted Signatures: Dispatcher [employer] Phil Gonzales MD MD rn Bryson, James, RN RN jb4 Gerber Doll, RN RN as6 Clarita Montanez, RN RN jh6 Brenda Luo 5
[2021-08-12 03:52] VITALS: TEMP 98.3
[2021-08-12 03:55] VITALS: BP 119/79; O2SAT 95
--- NOTE | 2021-08-13 09:57 | RAD REPORT ---
EXAM DESCRIPTION: CT - Abdomen Pelvis W Contrast - 08/12/2021 6:42 am CLINICAL HISTORY: 30 years, Female, Abdominal pain, acute, nonlocalized COMPARISON: 01/22/2019. TECHNIQUE: Contrast-enhanced images of the abdomen and pelvis were performed utilizing 5 mm slice th ickness at 5 mm interval reconstruction from the lung bases to the ischial tuberosities after the adm inistration of IV contrast. In addition multiplanar reformats in the coronal and sagittal plane were obtained and reviewed. This exam was performed according to our departmental dose-optimization protocol, which includes auto mated exposure control, adjustment of the mA and/or kV according to patient size and/or use of iterat sowmya reconstruction technique. FINDINGS: The lung bases demonstrate to be clear. The liver, gallbladder, pancreas, spleen and adrenal glands demonstrate to be unremarkable, no focal lesions are noted. The kidneys demonstrate normal uptake of contrast media. No evidence for nephrolithiasis and/or hydro nephrosis. Grossly the unopacified stomach and large bowel demonstrate to be within normal limits. There is sl ight prominence of the proximal small bowel loops within the right upper quadrant area with minimal m ucosal enhancement findings are nonspecific and could correspond to mild localized ileus/or mild ente ritis could be of consideration. There is no evidence for bowel obstruction. Surgical suture within t he right lower quadrant correspond to most likely previous appendectomy. The urinary bladder demonstrate to be unremarkable. The uterus is retroflexed. There are no signifi cant adnexal masses. The aorta demonstrate to be normal. There is no retroperitoneal lymphadenopa thy. There is no ascites. The rest of the soft tissue and bony structures are within normal limits. IMPRESSION: Slight prominence of the proximal small bowel loops within the right upper quadrant area with minimal mucosal enhancement findings are nonspecific perhaps suggesting mild localized ileus an d/or mild enteritis. Status post appendectomy. Electronically signed by: Bryon Alba MD 08/12/2021 1:57 AM CDT Due to temporary technical issues with the PACS/Fluency reporting system, reports are being signed by the in house radiologists without review as a courtesy to insure prompt reporting. The interpreting radiologist is fully responsible for the content of the report.
== END 2021-08-12 03:17 | disposition home or self-care (01) ==
LOC: ER 23:21
DX: A09 Infectious gastroenteritis and colitis, unspecified (principal); R11.2 Nausea with vomiting, unspecified; E03.9 Hypothyroidism, unspecified; Z88.2 Allergy status to sulfonamides
CPT/HCPCS: 36415; 74177; 80053; 81003; 81015; 83690; 85025; 96361; 96374; 96375; 99284; J2175; J2405; J7030; Q9967